=== PATIENT | male | born 1960 | race African-American/Black ===

== ENCOUNTER 2019-11-08 07:09 | Inpatient (IN) | payer MEDICAID, OTHER ==
[~2019-11-08] VITALS: Ht 182.9 cm; Wt 70.1 kg
[2019-11-08] MEDS ORDERED: SODIUM CHLORIDE 0.9% 1,000 ML IV ONE (07:51)
[2019-11-08 08:27] LABS: Eosinophils # (auto) 0.1 uL; Hemoglobin 7.2 g/dL (13.5-17.5); Monocytes # (auto) 0.5 uL
[2019-11-08 08:32] LABS: Basophils # (auto) 0.1 uL; Basophils % (auto) 0.9 % (0.0-2.0); Eosinophils % (auto) 1.1 % (0.0-7.0); Hematocrit 21.3 % (41.0-53.0); Lymphocytes # (auto) 1.5 uL; Lymphocytes % (auto) 24.6 % (10.0-50.0); Mean Corpuscular Hemoglobin 31.4 pg (28.0-32.0); Mean Corpuscular Volume 92.6 fL (80.0-100.0); Monocytes % (auto) 8.6 % (0.0-12.0); Neutrophils # (auto) 3.9 uL; Neutrophils % (auto) 64.8 % (37.0-80.0); Nucleated Red Blood Cells % 0.1 %; Platelet Count (auto) 223 10^3/uL (140-450); Red Cell Distribution Width 13.8 % (11.8-14.3)
[2019-11-08 08:45] LABS: Albumin 1.8 g/dL (3.4-5.0); Calcium 7.8 mg/dL (8.5-10.1); Potassium 5.4 mmol/L (3.5-5.1)
[2019-11-08] MEDS ORDERED: cefTRIAXone 1GM/50ML D5W 50 ML IV ONE ×2 (08:45→09:38)
[2019-11-08] MEDS ORDERED: ALBUTEROL SULF 2.5 MG/0.5ML(0.5%) NEB SOLN NEB ONE (08:45)
[2019-11-08] MEDS ORDERED: FUROSEMIDE 40 MG/4 ML VIAL IV ONE (08:45)
[2019-11-08] MEDS ORDERED: SPIRONOLACTONE 25 MG TAB PO ONE (08:45)
[2019-11-08] MEDS ORDERED: IPRATROPIUM BROM 0.5 MG/2.5ML INH SOL NEB ONE (08:45)
[2019-11-08 08:54] LABS: BUN/Creatinine Ratio 6.4; Bilirubin, Total 0.3 mg/dL (0.2-1.0); Total Protein 9.7 g/dL (6.4-8.2)
[2019-11-08 09:09] LABS: INR 1.02 (0.9-1.15); Partial Thromboplastin Time 27.2 sec (23.64-32.05)
[2019-11-08 10:21] LABS: Urine WBC None Seen /hpf (0 - 3)
[2019-11-08] MEDS ORDERED: InsuLIN REG 1unit/0.01ml Soln (100units/ml) IV ONE (10:45)
[2019-11-08 10:49] LABS: Urine Bacteria NONE SEEN /hpf (None Seen); Urine Blood TRACE /uL (Negative); Urine Specific Gravity 1.008 (1.001-1.035)
[2019-11-08] MEDS ORDERED: InsuLIN R (HUMAN) 100 UNITS in SODIUM CHL 0.9% 99 ML IV SCH (11:11)
[2019-11-08] MEDS ORDERED: INSULIN LANTUS (GLARGINE) 1 /0.01ml (100units/ml) SC ONE (11:15)
[2019-11-08] MEDS ORDERED: DEXTROSE (50%) 50ML SYRG IV PRN ×2 (11:15→12:45)
[2019-11-08] MEDS ORDERED: ACCU-CHEK COMFORT CURVE STRIP VI SCH (12:00)
[2019-11-08] MEDS ORDERED: MORPHINE SULF INJ 2 MG/ML SYRINGE 1ML IV PRN (12:45)
[2019-11-08] MEDS ORDERED: ALBUTEROL SULF 2.5 MG/0.5ML(0.5%) NEB SOLN NEB PRN (12:45)
[2019-11-08] MEDS ORDERED: LORazepam 2MG/ML-1ML VIAL IV PRN (12:45)
[2019-11-08] MEDS ORDERED: NITROGLYCERIN 0.4 MG SL TAB SL PRN (12:45)
[2019-11-08] MEDS ORDERED: hydrALAZINE HCL 20 MG/ML VL IV PRN (12:45)
[2019-11-08] MEDS ORDERED: IPRATROPIUM BROM 0.5 MG/2.5ML INH SOL NEB PRN (12:45)
[2019-11-08] MEDS ORDERED: InsuLIN REG 1unit/0.01ml Soln (100units/ml) SC ONE (13:00)
[2019-11-08 13:30] LABS: Phosphorus 4.4 mg/dL (2.5-4.90)
[2019-11-08] MEDS: amLODIPine BESYLATE 5 MG TAB PO SCH (13:34)
[2019-11-08 13:38] LABS: Uric Acid 6.6 mg/dL (3.5-7.2)
[2019-11-08 14:34] VITALS: BP 165/75
[2019-11-08] MEDS: ACCU-CHEK COMFORT CURVE STRIP VI SCH ×2 (16:34→20:44)
[2019-11-08] MEDS: InsuLIN REG 1unit/0.01ml Soln (100units/ml) SC SCH ×2 (16:34→20:44)
[2019-11-08 17:00] VITALS: BP 157/82
[2019-11-08] MEDS: BUMETANIDE 2.5mg/10ml (0.25 mg/ml) INJ IV SCH (17:10)
--- NOTE | 2019-11-08 17:10 | NUR ---
Telemetry admit from [facility] admitted to Telemetry unit after SBAR received. Patient oriented to JORGE AVELAR, primary RN, unit, room, bed, and unit policies regarding patient care and visiting hours. Patient now on continuous telemetry monitoring, tele box # 25 and telemetry reading on arrival to unit is . Patient placed on bedside oxygen, weighed by bed scale and encouraged to call if they need something. All questions and concerns addressed, patient verbalized understanding.
[2019-11-08] MEDS: CARVEDILOL 3.125 MG TAB PO SCH (17:11)
--- NOTE | 2019-11-08 17:41 | NUR ---
Patient does not remember his home meds, attempted to call his roommate (Kameron)#[phone] to bring his home meds lists but no response.
--- NOTE | 2019-11-08 19:15 | NUR ---
Opening Shift Note Assumed care of patient, awake and alert. No S/S of distress/SOB or pain. Instructed on POC and to call for assist PRN, will continue to monitor for changes Q1hr and PRN. Side rails up x2. Bed locked in lowest position. Call light within reach.
[2019-11-08 22:00] VITALS: BP 154/86
[2019-11-09] VITALS (7 sets, daily range): BP systolic 142–155; BP diastolic 60–86
[2019-11-09] MEDS: ACCU-CHEK COMFORT CURVE STRIP VI SCH ×6 (01:22→22:25)
[2019-11-09] MEDS: InsuLIN REG 1unit/0.01ml Soln (100units/ml) SC SCH ×5 (01:22→17:40)
[2019-11-09] MEDS: BUMETANIDE 2.5mg/10ml (0.25 mg/ml) INJ IV SCH ×2 (05:12→18:23)
[2019-11-09 05:49] LABS: Basophils # (auto) 0.1 uL; Basophils % (auto) 1.3 % (0.0-2.0); Eosinophils # (auto) 0.1 uL; Eosinophils % (auto) 1.4 % (0.0-7.0); Hematocrit 24.1 % (41.0-53.0); Hemoglobin 8.2 g/dL (13.5-17.5); Lymphocytes # (auto) 1.8 uL; Lymphocytes % (auto) 26.8 % (10.0-50.0); Mean Corpuscular Hemoglobin 30.9 pg (28.0-32.0); Mean Corpuscular Hgb Conc. 34.1 g/dL (32.0-36.0); Mean Corpuscular Volume 90.4 fL (80.0-100.0); Monocytes # (auto) 0.5 uL; Monocytes % (auto) 7.1 % (0.0-12.0); Neutrophils # (auto) 4.4 uL; Neutrophils % (auto) 63.4 % (37.0-80.0); Platelet Count (auto) 262 10^3/uL (140-450); Red Blood Cells 2.67 10^6/uL (4.5-5.90); Red Cell Distribution Width 14.3 % (11.8-14.3); White Blood Cell 6.9 10^3/uL (4.4-10.8)
[2019-11-09 06:09] LABS: Calcium 8.3 mg/dL (8.5-10.1); Potassium 4.5 mmol/L (3.5-5.1)
--- NOTE | 2019-11-09 08:05 | NUR ---
Respiratory note: ASSESSED PT FOR PRN MEDNEB TX. HR 99, RR 14, SPO2 97% ON ROOM AIR. BREATH SOUNDS CLEAR THROUGHOUT. PT SITTING UP IN BED EATING BREAKFAST, DENIES ANY SOB. NO S/S OF RESPIRATORY DISTRESS NOTED. MEDNEB TX NOT INDICATED AT THIS TIME. PT AWARE TO CALL FOR RT IF NEEDED.
[2019-11-09] MEDS: CARVEDILOL 3.125 MG TAB PO SCH ×2 (09:16→18:24)
[2019-11-09] MEDS: amLODIPine BESYLATE 5 MG TAB PO SCH (09:17)
[2019-11-09] MEDS ORDERED: DEXTROSE (50%) 50ML SYRG IV PRN (11:30)
--- NOTE | 2019-11-09 19:57 | NUR ---
Respiratory note: PRN ASSESSMENT FOR MED NEB TX. PT PRESENTING NO RESPIRATORY DISTRESS AT THIS TIME. HR 90, SPO2 98% ON 3LNC, RR 20, BS DIMINISHED. PT AWARE TO HAVE RT PAGED IF MED NEB TX IS NEEDED. WILL CONTINUE TO MONITOR.
[2019-11-09] MEDS ORDERED: InsuLIN REG 1unit/0.01ml Soln (100units/ml) SC SCH (22:00)
[2019-11-10 05:00] VITALS: BP 134/79
[2019-11-10] MEDS: BUMETANIDE 2.5mg/10ml (0.25 mg/ml) INJ IV SCH (05:42)
[2019-11-10 06:25] LABS: Basophils # (auto) 0.1 uL; Basophils % (auto) 0.9 % (0.0-2.0); Eosinophils # (auto) 0.1 uL; Eosinophils % (auto) 1.7 % (0.0-7.0); Hemoglobin 8.3 g/dL (13.5-17.5); Lymphocytes # (auto) 2.2 uL; Lymphocytes % (auto) 31.6 % (10.0-50.0); Mean Corpuscular Hemoglobin 31.3 pg (28.0-32.0); Mean Corpuscular Hgb Conc. 34.8 g/dL (32.0-36.0); Mean Corpuscular Volume 89.9 fL (80.0-100.0); Monocytes # (auto) 0.6 uL; Monocytes % (auto) 8.8 % (0.0-12.0); Nucleated Red Blood Cells % 0.1 %; Platelet Count (auto) 273 10^3/uL (140-450); Red Blood Cells 2.67 10^6/uL (4.5-5.90); Red Cell Distribution Width 14.2 % (11.8-14.3)
[2019-11-10] MEDS: InsuLIN REG 1unit/0.01ml Soln (100units/ml) SC SCH ×2 (06:30→11:50)
[2019-11-10] MEDS: ACCU-CHEK COMFORT CURVE STRIP VI SCH ×2 (06:35→11:50)
[2019-11-10 06:44] LABS: Calcium 8.3 mg/dL (8.5-10.1); Potassium 4.8 mmol/L (3.5-5.1)
[2019-11-10 06:47] LABS: BUN/Creatinine Ratio 7.6
--- NOTE | 2019-11-10 07:55 | NUR ---
Patient sitting up in bed, awake, oriented x4, no acute distress noted. Patient waiting for breakfast tray.
--- NOTE | 2019-11-10 08:15 | NUR ---
Patient eating breakfast.
[2019-11-10 09:00] VITALS: BP 127/70
[2019-11-10] MEDS: CARVEDILOL 3.125 MG TAB PO SCH (09:53)
[2019-11-10] MEDS: amLODIPine BESYLATE 5 MG TAB PO SCH (09:53)
--- NOTE | 2019-11-10 09:55 | NUR ---
Called Stress Lab, transferred my call to Nuclear Medicine. Spoke with Carson what time is patient going to have Stress Test, patient is on NPO. Carson said patient can have light breakfast but no coffee. Addendum: 11/10/19 at 1024 by Ele Ely RN WRONG ENTRY
--- NOTE | 2019-11-10 10:00 | NUR ---
Patient sitting up in bed, waiting for the doctor to see him.
--- NOTE | 2019-11-10 11:05 | NUR ---
Dr. Kelsey at bedside. explained to patient the recommendation for hemodialysis. Patient insisted he has an appointment with Dr. Blake on Wednesday to discuss the other option regarding hemodialysis. Patient wants to go home. Dr. Kelsey to put in discharge orders.
--- NOTE | 2019-11-10 11:15 | NUR ---
Patient's friend Idalia ([phone]) called that she will brain picker the patient after 2:00 pm today because she has doctor's appointment at [facility]. Will inform the patient.
[2019-11-10 13:16] VITALS: BP 127/70
--- NOTE | 2019-11-10 15:15 | NUR ---
Discharge instructions given as ordered. Encourage to follow up with PMD as instructed. All questions and concerns addressed. Patient verbalized understanding. Medication reconciliation form completed and copy given to patient. IV removed with catheter intact, pressure dressing applied. Telemetry unit returned to ICU. Patient taken to vehicle via wheelchair with all personal belongings, accompanied by staff and friend. No distress noted at time of departure.
== END 2019-11-10 15:15 | disposition home or self-care (01) | DRG 133 ==
LOC: ER 07:09 → EDBD 07:09 → TELE 07:10 → TELE-CENTR 16:12
PROVIDERS: ADMIT Nurse Practitioner Acute Care; ATTEND Internal Medicine
DX: J96.01 Acute respiratory failure with hypoxia (principal); E43 Unspecified severe protein-calorie malnutrition; I13.2 Hypertensive heart and chronic kidney disease with heart failure and with stage 5 chronic kidney disease, or end stage renal disease; J18.9 Pneumonia, unspecified organism; N17.9 Acute kidney failure, unspecified; E11.22 Type 2 diabetes mellitus with diabetic chronic kidney disease; I50.43 Acute on chronic combined systolic (congestive) and diastolic (congestive) heart failure; N18.6 End stage renal disease; E87.5 Hyperkalemia; D63.1 Anemia in chronic kidney disease; F20.0 Paranoid schizophrenia; E78.5 Hyperlipidemia, unspecified; F31.9 Bipolar disorder, unspecified; J44.0 Chronic obstructive pulmonary disease with (acute) lower respiratory infection; Z79.4 Long term (current) use of insulin; Z79.899 Other long term (current) drug therapy; Z91.15 Patient's noncompliance with renal dialysis; Z68.1 Body mass index [BMI] 19.9 or less, adult
CPT/HCPCS: 36415; 71046; 76775; 78582; 80048; 80053; 81001; 82962; 83036; 83735; 83880; 84100; 84443; 84484; 84550; 85025; 85379; 85610; 85730; 86850; 86900; 86901; 87040; 93005; 93306; 94640; 96365; 96372; 96375; 99291; G0378; J0696; J1815

== ENCOUNTER 2019-11-29 02:44 | Inpatient (IN) | payer MEDICAID ==
[2019-11-29] VITALS (11 sets, daily range): BP systolic 146–162; BP diastolic 53–74
[~2019-11-29] VITALS: Ht 180.3 cm; Wt 78.5 kg
[2019-11-29] MEDS ORDERED: ALBUTEROL SULF 2.5 MG/0.5ML(0.5%) NEB SOLN NEB ONE ×3 (03:00→12:00)
[2019-11-29] MEDS ORDERED: IPRATROPIUM BROM 0.5 MG/2.5ML INH SOL NEB ONE ×2 (03:00→06:15)
[2019-11-29 03:30] LABS: Basophils # (auto) 0 10 ^3/uL (0-0.2); Eosinophils # (auto) 0.1 10 ^3/uL (0-0.8); Hematocrit 20.3 % (41.0-53.0); Neutrophils # (auto) 4.1 10 ^3/uL (1.6-8.6); White Blood Cell 6.5 10^3/uL (4.4-10.8)
[2019-11-29 03:32] LABS: Basophils % (auto) 0.7 % (0.0-2.0); Eosinophils % (auto) 1.1 % (0.0-7.0); Lymphocytes # (auto) 1.7 10 ^3/uL (0.4-5.4); Lymphocytes % (auto) 25.6 % (10.0-50.0); Mean Corpuscular Hemoglobin 30.2 pg (28.0-32.0); Mean Corpuscular Hgb Conc. 33.6 g/dL (32.0-36.0); Mean Corpuscular Volume 90.1 fL (80.0-100.0); Monocytes # (auto) 0.6 10 ^3/uL (0-1.3); Monocytes % (auto) 9.5 % (0.0-12.0); Neutrophils % (auto) 63.1 % (37.0-80.0); Platelet Count (auto) 219 10^3/uL (140-450); Red Blood Cells 2.26 10^6/uL (4.5-5.90)
[2019-11-29 03:36] LABS: Hemoglobin 6.8 g/dL (13.5-17.5)
[2019-11-29] MEDS ORDERED: methylPREDNISolone SOD SUCC 125 MG/2 ML VL IV ONE (03:45)
[2019-11-29 03:47] LABS: INR 1.08 (0.9-1.15); Partial Thromboplastin Time 27.5 sec (23.64-32.05)
[2019-11-29 03:56] LABS: Calcium 7.7 mg/dL (8.5-10.1); Potassium 4.1 mmol/L (3.5-5.1)
[2019-11-29 04:04] LABS: Bilirubin, Total 0.2 mg/dL (0.2-1.0); Total Protein 10.1 g/dL (6.4-8.2)
[2019-11-29] MEDS ORDERED: VANCOMYCIN PER PHARMACY 0 MG IV SCH (05:30)
[2019-11-29] MEDS ORDERED: PIPERACILLIN-TAZOB 3.375GM 100 ML IV ONE (05:30)
[2019-11-29] MEDS ORDERED: VANCOMYCIN 1GM/250ML 250 ML IV ONE (07:00)
[2019-11-29] MEDS ORDERED: FUROSEMIDE 100 MG/10ML VIAL IV ONE (07:15)
[2019-11-29] MEDS ORDERED: DEXTROSE (50%) 50ML SYRG IV PRN (07:15)
[2019-11-29] MEDS: ACETAMINOPHEN 500 MG TAB PO ONE ×2 (10:00→10:29)
[2019-11-29] MEDS: methylPREDNISolone SOD SUCC 40 MG/ML VL IV SCH ×2 (10:28→21:24)
[2019-11-29] MEDS: cefTRIAXone 1GM/50ML D5W 50 ML IV SCH (10:30)
[2019-11-29] MEDS ORDERED: InsuLIN REG 1unit/0.01ml Soln (100units/ml) SC SCH ×2 (12:00→18:00)
[2019-11-29] MEDS ORDERED: ACCU-CHEK COMFORT CURVE STRIP VI ONE (12:00)
[2019-11-29] MEDS ORDERED: ACCU-CHEK COMFORT CURVE STRIP VI SCH (12:00)
[2019-11-29] MEDS: SEVELAMER 800 MG TAB PO SCH ×2 (12:36→18:09)
[2019-11-29] MEDS: AZITHROMYCIN 500MG/ 250ML 250 ML IV SCH (12:36)
[2019-11-29] MEDS ORDERED: InsuLIN REG 1unit/0.01ml Soln (100units/ml) SC ONE (13:15)
[2019-11-29] MEDS ORDERED: INSULIN LANTUS (GLARGINE) 1 /0.01ml (100units/ml) SC ONE (13:15)
[2019-11-29] MEDS ORDERED: amLODIPine BESYLATE 5 MG TAB PO ONE (13:45)
[2019-11-29 14:13] LABS: Basophils # (auto) 0 10 ^3/uL (0-0.2); Basophils % (auto) 0.3 % (0.0-2.0); Eosinophils # (auto) 0 10 ^3/uL (0-0.8); Hematocrit 27.2 % (41.0-53.0); Hemoglobin 8.9 g/dL (13.5-17.5); Lymphocytes # (auto) 0.3 10 ^3/uL (0.4-5.4); Lymphocytes % (auto) 5.9 % (10.0-50.0); Mean Corpuscular Hemoglobin 30.5 pg (28.0-32.0); Mean Corpuscular Hgb Conc. 32.7 g/dL (32.0-36.0); Mean Corpuscular Volume 93.2 fL (80.0-100.0); Monocytes # (auto) 0 10 ^3/uL (0-1.3); Monocytes % (auto) 0.6 % (0.0-12.0); Neutrophils # (auto) 5.2 10 ^3/uL (1.6-8.6); Neutrophils % (auto) 93.2 % (37.0-80.0); Platelet Count (auto) 209 10^3/uL (140-450); Red Blood Cells 2.92 10^6/uL (4.5-5.90); Red Cell Distribution Width 14.5 % (11.8-14.3); White Blood Cell 5.6 10^3/uL (4.4-10.8)
[2019-11-29] MEDS ORDERED: InsuLIN REG 1unit/0.01ml Soln (100units/ml) IV ONE ×2 (15:15→18:45)
[2019-11-29] MEDS: InsuLIN REG 1unit/0.01ml Soln (100units/ml) SC SCH ×2 (18:27→21:26)
[2019-11-29] MEDS: ACCU-CHEK COMFORT CURVE STRIP VI SCH ×2 (18:27→21:26)
[2019-11-29] MEDS: INSULIN LANTUS (GLARGINE) 1 /0.01ml (100units/ml) SC SCH (21:26)
[2019-11-29] MEDS ORDERED: INSULIN LANTUS (GLARGINE) 1 /0.01ml (100units/ml) SC SCH (22:00)
[2019-11-30] MEDS: ACCU-CHEK COMFORT CURVE STRIP VI SCH ×6 (02:12→21:24)
[2019-11-30] MEDS: InsuLIN REG 1unit/0.01ml Soln (100units/ml) SC SCH ×6 (02:18→21:28)
[2019-11-30 05:00] VITALS: BP 151/73
[2019-11-30 05:55] LABS: Basophils # (auto) 0 10 ^3/uL (0-0.2); Basophils % (auto) 0.1 % (0.0-2.0); Eosinophils # (auto) 0 10 ^3/uL (0-0.8); Hematocrit 23.8 % (41.0-53.0); Hemoglobin 8.2 g/dL (13.5-17.5); Lymphocytes # (auto) 0.6 10 ^3/uL (0.4-5.4); Lymphocytes % (auto) 6.5 % (10.0-50.0); Mean Corpuscular Hgb Conc. 34.7 g/dL (32.0-36.0); Mean Corpuscular Volume 89.5 fL (80.0-100.0); Monocytes # (auto) 0.3 10 ^3/uL (0-1.3); Monocytes % (auto) 3.5 % (0.0-12.0); Neutrophils # (auto) 7.6 10 ^3/uL (1.6-8.6); Neutrophils % (auto) 89.9 % (37.0-80.0); Platelet Count (auto) 199 10^3/uL (140-450); Red Blood Cells 2.66 10^6/uL (4.5-5.90); Red Cell Distribution Width 14.4 % (11.8-14.3); White Blood Cell 8.5 10^3/uL (4.4-10.8)
[2019-11-30 06:12] LABS: Calcium 8.8 mg/dL (8.5-10.1); Potassium 4.6 mmol/L (3.5-5.1)
[2019-11-30 06:14] LABS: BUN/Creatinine Ratio 11.5; Phosphorus 6.9 mg/dL (2.5-4.90)
[2019-11-30] MEDS: SEVELAMER 800 MG TAB PO SCH ×3 (08:00→17:42)
[2019-11-30] MEDS ORDERED: SODIUM CHL 0.9% 1000 ML BAG XX ONE (08:15)
[2019-11-30] MEDS ORDERED: LIDOCAINE 2%HCL (LOCAL ANESTH.) INJ 20ML MDV ONE (08:20)
[2019-11-30] MEDS ORDERED: HEPARIN SODIUM (PORCINE) 5000 UNITS/ML 1ML VIAL ONE (08:54)
[2019-11-30] MEDS ORDERED: fentaNYL CITRATE 100 MCG/2 ML VL ONE (08:54)
[2019-11-30] MEDS ORDERED: MIDAZOLAM HCL 1MG/1ML-2 ML VIAL ONE (08:55)
[2019-11-30] MEDS: INSULIN LANTUS (GLARGINE) 1 /0.01ml (100units/ml) SC SCH ×2 (10:00→21:29)
[2019-11-30] MEDS: amLODIPine BESYLATE 5 MG TAB PO SCH ×2 (10:00→19:01)
[2019-11-30] MEDS: cefTRIAXone 1GM/50ML D5W 50 ML IV SCH (10:00)
[2019-11-30] MEDS: methylPREDNISolone SOD SUCC 40 MG/ML VL IV SCH ×2 (10:47→21:24)
[2019-11-30] MEDS: AZITHROMYCIN 500MG/ 250ML 250 ML IV SCH (10:52)
[2019-11-30 11:09] LABS: Hepatitis A Ab IgM Negative; Hepatitis B Core IgM Negative; Hepatitis B Surface Antigen Negative (Negative); Hepatitis C Antibody Negative (Negative)
[2019-11-30] MEDS ORDERED: SODIUM FERR GLUC 62.5MG/5ML 125 MG in SODIUM CHL 0.9% 100 ML IV SCH (12:00)
[2019-11-30 13:01] VITALS: BP 146/79
[2019-11-30] MEDS: IRON SUCROSE COMPLEX 200 MG in SODIUM CHL 0.9% 100 ML IV SCH (16:18)
[2019-11-30 17:00] VITALS: BP 164/70
[2019-11-30] MEDS ORDERED: EPOETIN ALFA 10,000 UNIT/1 ML VIAL SC ONE (21:00)
[2019-11-30 22:00] VITALS: BP 157/97
[2019-12-01] MEDS: InsuLIN REG 1unit/0.01ml Soln (100units/ml) SC SCH ×6 (02:44→22:03)
[2019-12-01] MEDS: ACCU-CHEK COMFORT CURVE STRIP VI SCH ×6 (02:44→22:04)
[2019-12-01 05:00] VITALS: BP 152/85
[2019-12-01 05:41] LABS: Basophils # (auto) 0 10 ^3/uL (0-0.2); Basophils % (auto) 0.3 % (0.0-2.0); Eosinophils # (auto) 0 10 ^3/uL (0-0.8); Eosinophils % (auto) 0.1 % (0.0-7.0); Hematocrit 28.1 % (41.0-53.0); Hemoglobin 9.7 g/dL (13.5-17.5); Lymphocytes # (auto) 0.5 10 ^3/uL (0.4-5.4); Lymphocytes % (auto) 4.4 % (10.0-50.0); Mean Corpuscular Hemoglobin 31.2 pg (28.0-32.0); Mean Corpuscular Hgb Conc. 34.7 g/dL (32.0-36.0); Mean Corpuscular Volume 89.8 fL (80.0-100.0); Monocytes # (auto) 0.3 10 ^3/uL (0-1.3); Neutrophils # (auto) 9.7 10 ^3/uL (1.6-8.6); Neutrophils % (auto) 92.2 % (37.0-80.0); Platelet Count (auto) 216 10^3/uL (140-450); Red Blood Cells 3.13 10^6/uL (4.5-5.90); Red Cell Distribution Width 14.4 % (11.8-14.3); White Blood Cell 10.5 10^3/uL (4.4-10.8)
[2019-12-01 05:58] LABS: BUN/Creatinine Ratio 12.5; Calcium 8.2 mg/dL (8.5-10.1); Potassium 4.7 mmol/L (3.5-5.1)
[2019-12-01] MEDS ORDERED: SODIUM CHL 0.9% 1000 ML BAG XX ONE (07:00)
[2019-12-01 09:00] VITALS: BP 128/86
[2019-12-01] MEDS: cefTRIAXone 1GM/50ML D5W 50 ML IV SCH (09:53)
[2019-12-01] MEDS: INSULIN LANTUS (GLARGINE) 1 /0.01ml (100units/ml) SC SCH ×2 (09:53→22:05)
[2019-12-01] MEDS: methylPREDNISolone SOD SUCC 40 MG/ML VL IV SCH ×2 (09:54→22:03)
[2019-12-01] MEDS: amLODIPine BESYLATE 5 MG TAB PO SCH ×2 (09:54→17:57)
[2019-12-01] MEDS: SEVELAMER 800 MG TAB PO SCH ×3 (09:55→17:56)
[2019-12-01] MEDS: AZITHROMYCIN 500MG/ 250ML 250 ML IV SCH (11:42)
[2019-12-01] MEDS: IRON SUCROSE COMPLEX 200 MG in SODIUM CHL 0.9% 100 ML IV SCH (12:52)
[2019-12-01 13:00] VITALS: BP 143/91
[2019-12-01 17:00] VITALS: BP 166/73
[2019-12-01 20:10] VITALS: BP 140/77
[2019-12-01] MEDS ORDERED: EPOETIN ALFA 10,000 UNIT/1 ML VIAL SC ONE (21:00)
[2019-12-01 22:00] VITALS: BP 140/77
[2019-12-02] MEDS: ACCU-CHEK COMFORT CURVE STRIP VI SCH ×6 (02:00→21:37)
[2019-12-02] MEDS: InsuLIN REG 1unit/0.01ml Soln (100units/ml) SC SCH ×6 (02:00→21:36)
[2019-12-02 05:00] VITALS: BP 148/88
[2019-12-02] MEDS ORDERED: SODIUM CHL 0.9% 1000 ML BAG XX ONE (07:45)
[2019-12-02 08:46] VITALS: BP 153/85
[2019-12-02] MEDS: cefTRIAXone 1GM/50ML D5W 50 ML IV SCH (09:30)
[2019-12-02] MEDS: methylPREDNISolone SOD SUCC 40 MG/ML VL IV SCH ×2 (09:30→21:37)
[2019-12-02] MEDS: SEVELAMER 800 MG TAB PO SCH ×3 (09:30→18:11)
[2019-12-02] MEDS: amLODIPine BESYLATE 5 MG TAB PO SCH (09:31)
[2019-12-02] MEDS: INSULIN LANTUS (GLARGINE) 1 /0.01ml (100units/ml) SC SCH ×2 (09:33→21:37)
[2019-12-02] MEDS: AZITHROMYCIN 500MG/ 250ML 250 ML IV SCH (12:26)
[2019-12-02] MEDS: IRON SUCROSE COMPLEX 200 MG in SODIUM CHL 0.9% 100 ML IV SCH (12:26)
[2019-12-02 12:30] VITALS: BP_SYST 114; BP_SYST 152; BP_DIAS 71; BP_DIAS 83
[2019-12-02 16:35] VITALS: BP 147/78
[2019-12-02] MEDS ORDERED: EPOETIN ALFA 10,000 UNIT/1 ML VIAL SC ONE (21:00)
[2019-12-02 22:00] VITALS: BP 151/75
[2019-12-03 02:00] VITALS: BP 157/84
[2019-12-03] MEDS: ACCU-CHEK COMFORT CURVE STRIP VI SCH ×4 (02:23→14:00)
[2019-12-03] MEDS: InsuLIN REG 1unit/0.01ml Soln (100units/ml) SC SCH ×4 (02:23→14:00)
[2019-12-03 05:00] VITALS: BP 150/85
[2019-12-03 09:10] VITALS: BP 140/91
[2019-12-03] MEDS: SEVELAMER 800 MG TAB PO SCH ×3 (10:44→15:48)
[2019-12-03] MEDS: amLODIPine BESYLATE 5 MG TAB PO SCH (10:45)
[2019-12-03] MEDS: methylPREDNISolone SOD SUCC 40 MG/ML VL IV SCH (10:46)
[2019-12-03] MEDS: cefTRIAXone 1GM/50ML D5W 50 ML IV SCH (10:46)
[2019-12-03] MEDS: INSULIN LANTUS (GLARGINE) 1 /0.01ml (100units/ml) SC SCH (11:00)
[2019-12-03] MEDS: AZITHROMYCIN 500MG/ 250ML 250 ML IV SCH (11:00)
[2019-12-03] MEDS: IRON SUCROSE COMPLEX 200 MG in SODIUM CHL 0.9% 100 ML IV SCH (12:00)
[2019-12-03 13:00] VITALS: BP 148/93
[2019-12-03 13:16] VITALS: BP 140/91
== END 2019-12-03 15:32 | disposition home or self-care (01) | DRG 139 ==
LOC: EDBD 02:44 → ER 02:49 → TELE 02:50 → TELE-WESTW 09:00
PROVIDERS: ADMIT Internal Medicine Pulmonary Disease; ATTEND Internal Medicine
PROC: 30233N1 Transfusion of Nonautologous Red Blood Cells into Peripheral Vein, Percutaneous Approach (ICD-10-PCS; principal; 2019-11-29)
PROC: 0JH63XZ Insertion of Tunneled Vascular Access Device into Chest Subcutaneous Tissue and Fascia, Percutaneous Approach (ICD-10-PCS; 2019-11-30)
PROC: 02HV33Z Insertion of Infusion Device into Superior Vena Cava, Percutaneous Approach (ICD-10-PCS; 2019-11-30)
PROC: B5181ZA Fluoroscopy of Superior Vena Cava using Low Osmolar Contrast, Guidance (ICD-10-PCS; 2019-11-30)
PROC: 5A1D70Z Performance of Urinary Filtration, Intermittent, Less than 6 Hours Per Day (ICD-10-PCS; 2019-11-30)
PROC: 5A1D70Z Performance of Urinary Filtration, Intermittent, Less than 6 Hours Per Day (ICD-10-PCS; 2019-12-02)
DX: J18.9 Pneumonia, unspecified organism (principal); I13.2 Hypertensive heart and chronic kidney disease with heart failure and with stage 5 chronic kidney disease, or end stage renal disease; N17.9 Acute kidney failure, unspecified; E11.21 Type 2 diabetes mellitus with diabetic nephropathy; N18.6 End stage renal disease; I50.22 Chronic systolic (congestive) heart failure; D63.1 Anemia in chronic kidney disease; J20.9 Acute bronchitis, unspecified; J44.9 Chronic obstructive pulmonary disease, unspecified; E11.22 Type 2 diabetes mellitus with diabetic chronic kidney disease; F31.9 Bipolar disorder, unspecified; K21.9 Gastro-esophageal reflux disease without esophagitis; Z99.2 Dependence on renal dialysis; Z79.4 Long term (current) use of insulin; Z79.899 Other long term (current) drug therapy; Z71.6 Tobacco abuse counseling
CPT/HCPCS: 36415; 71045; 76942; 80048; 80053; 80074; 82728; 82962; 83540; 83550; 83605; 83880; 84100; 84484; 85025; 85610; 85730; 86850; 86900; 86901; 86920; 87040; 90935; 93005; 94640; 96365; 96367; 96375; 99152; 99153; G0378; J0696; J0885; J1642; J1756; J1815; J2250; J2543

== ENCOUNTER 2020-01-22 01:42 | Inpatient (IN) | payer MEDICAID ==
[~2020-01-22] VITALS: Ht 180.3 cm; Wt 75.3 kg
[2020-01-22] MEDS ORDERED: InsuLIN REG 1unit/0.01ml Soln (100units/ml) IV ONE (02:00)
[2020-01-22 02:44] LABS: Basophils # (auto) 0 10 ^3/uL (0-0.2); Eosinophils # (auto) 0.1 10 ^3/uL (0-0.8); Hemoglobin 8.4 g/dL (13.5-17.5); Lymphocytes # (auto) 1.1 10 ^3/uL (0.4-5.4); Neutrophils # (auto) 4.6 10 ^3/uL (1.6-8.6); White Blood Cell 6.3 10^3/uL (4.4-10.8)
[2020-01-22 02:46] LABS: Basophils % (auto) 0.6 % (0.0-2.0); Eosinophils % (auto) 0.8 % (0.0-7.0); Hematocrit 25.1 % (41.0-53.0); Lymphocytes % (auto) 17.8 % (10.0-50.0); Mean Corpuscular Hemoglobin 30.4 pg (28.0-32.0); Mean Corpuscular Hgb Conc. 33.5 g/dL (32.0-36.0); Mean Corpuscular Volume 90.8 fL (80.0-100.0); Monocytes # (auto) 0.4 10 ^3/uL (0-1.3); Monocytes % (auto) 7.1 % (0.0-12.0); Neutrophils % (auto) 73.7 % (37.0-80.0); Nucleated Red Blood Cells % 0.1 %; Platelet Count (auto) 210 10^3/uL (140-450); Red Blood Cells 2.76 10^6/uL (4.5-5.90); Red Cell Distribution Width 16.4 % (11.8-14.3)
[2020-01-22 03:15] LABS: Albumin 1.8 g/dL (3.4-5.0); Calcium 7.2 mg/dL (8.5-10.1); Potassium 3.4 mmol/L (3.5-5.1)
[2020-01-22 03:16] LABS: INR 1.11 (0.9-1.15); Partial Thromboplastin Time 29.1 sec (23.64-32.05)
[2020-01-22 03:24] LABS: BUN/Creatinine Ratio 3.6; Bilirubin, Total 0.4 mg/dL (0.2-1.0); Total Protein 9.9 g/dL (6.4-8.2)
[2020-01-22] MEDS ORDERED: FUROSEMIDE 20 MG/2 ML VIAL ONE (03:55)
[2020-01-22 03:58] LABS: Urine Bacteria FEW /hpf (None Seen); Urine Blood 1+ /uL (Negative); Urine Specific Gravity 1.006 (1.001-1.035); Urine WBC 29 /hpf (0 - 3)
[2020-01-22] MEDS ORDERED: FUROSEMIDE 40 MG/4 ML VIAL IV ONE (04:00)
[2020-01-22] MEDS ORDERED: SODIUM CHLORIDE 0.9% 1,000 ML IV SCH (04:38)
[2020-01-22] MEDS ORDERED: ONDANSETRON HCL 4 MG/2 ML VIAL IV PRN (04:45)
[2020-01-22] MEDS ORDERED: MORPHINE SULFATE 4 MG/ML SYR/VIAL IV PRN (04:45)
[2020-01-22] MEDS ORDERED: HYDROcodone-ACET 5/325MG TAB PO PRN (04:45)
[2020-01-22] MEDS ORDERED: DEXTROSE (50%) 50ML SYRG IV PRN ×2 (04:45→12:45)
[2020-01-22] MEDS ORDERED: ACETAMINOPHEN 325 MG TAB PO PRN (04:45)
[2020-01-22] MEDS ORDERED: ALBUTEROL SULF 2.5 MG/0.5ML(0.5%) NEB SOLN NEB PRN (04:45)
[2020-01-22] MEDS ORDERED: LORazepam 0.5 MG TAB PO PRN (04:45)
[2020-01-22] MEDS ORDERED: IPRATROPIUM BROM 0.5 MG/2.5ML INH SOL NEB PRN (04:45)
--- NOTE | 2020-01-22 05:45 | NUR ---
Respiratory note: ASSESSED PT FOR PRN TX . PT WAS AWAKE AND ALERT, NO RESP DISTRESS NOTED. HR 92, RR 18, SPO2 94% ON 2L N/C. NO INDICATION FOR TX AT THIS TIME. PT KNOWS TO HAVE RT PAGED IF TX IS NEEDED.
[2020-01-22 05:46] VITALS: BP 176/86
[2020-01-22 06:23] LABS: Calcium 7.4 mg/dL (8.5-10.1); Potassium 3.2 mmol/L (3.5-5.1)
[2020-01-22 06:44] LABS: Eosinophils # (auto) 0.1 10 ^3/uL (0-0.8); Hemoglobin 8.2 g/dL (13.5-17.5); Monocytes # (auto) 0.6 10 ^3/uL (0-1.3); White Blood Cell 7.1 10^3/uL (4.4-10.8)
[2020-01-22 06:47] LABS: Basophils # (auto) 0.1 10 ^3/uL (0-0.2); Basophils % (auto) 0.8 % (0.0-2.0); Hematocrit 24.5 % (41.0-53.0); Lymphocytes # (auto) 1.5 10 ^3/uL (0.4-5.4); Lymphocytes % (auto) 20.5 % (10.0-50.0); Mean Corpuscular Hemoglobin 30.2 pg (28.0-32.0); Mean Corpuscular Hgb Conc. 33.6 g/dL (32.0-36.0); Mean Corpuscular Volume 89.6 fL (80.0-100.0); Monocytes % (auto) 8.6 % (0.0-12.0); Neutrophils # (auto) 4.9 10 ^3/uL (1.6-8.6); Neutrophils % (auto) 69.1 % (37.0-80.0); Platelet Count (auto) 216 10^3/uL (140-450); Red Blood Cells 2.73 10^6/uL (4.5-5.90); Red Cell Distribution Width 16.8 % (11.8-14.3)
[2020-01-22] MEDS: ACCU-CHEK COMFORT CURVE STRIP VI SCH ×4 (07:55→22:11)
[2020-01-22] MEDS: InsuLIN REG 1unit/0.01ml Soln (100units/ml) SC SCH ×4 (08:11→22:11)
[2020-01-22] MEDS ORDERED: POTASSIUM CHL 20 Meq TABLET PO ONE (08:45)
[2020-01-22 08:50] VITALS: BP 168/89
[2020-01-22] MEDS ORDERED: cefTRIAXone 1GM/50ML D5W 50 ML IV SCH (09:00)
[2020-01-22] MEDS ORDERED: B-CO-6 PO (09:45)
[2020-01-22] MEDS ORDERED: INSU100I45 IJ (09:45)
[2020-01-22] MEDS ORDERED: METH-532 PO (09:45)
[2020-01-22] MEDS ORDERED: CINA30TA2 PO (09:45)
[2020-01-22] MEDS ORDERED: INSU1INJ19 SC (09:45)
[2020-01-22] MEDS ORDERED: DIPH25CA66 PO (09:45)
[2020-01-22] MEDS ORDERED: SIMV10TA84 PO (09:45)
[2020-01-22] MEDS ORDERED: QUET25TA37 PO (09:45)
[2020-01-22] MEDS ORDERED: VERA120T6 PO (09:45)
[2020-01-22] MEDS ORDERED: SEVE800T8 PO ×2 (09:45)
[2020-01-22] MEDS ORDERED: FUROSEMIDE 40 MG/4 ML VIAL IV SCH (10:00)
[2020-01-22] MEDS ORDERED: methylPREDNISolone SOD SUCC 125 MG/2 ML VL IV SCH (10:00)
[2020-01-22] MEDS ORDERED: PANTOPRAZOLE 40 MG/10 ML VIAL INJ IV SCH (10:00)
--- NOTE | 2020-01-22 10:30 | NUR ---
MRSA SENT TO LAB
--- NOTE | 2020-01-22 10:30 | NUR ---
NO LASIX ON CENTRAL NOTIFIED KATERIN FROM PHARMACY NO LASIX ON CENTRAL HE WILL RESTOCK IF AVAILABLE.
[2020-01-22] MEDS ORDERED: FUROSEMIDE 100 MG/10ML VIAL IV ONE (12:00)
[2020-01-22 13:00] VITALS: BP 151/89
--- NOTE | 2020-01-22 13:30 | NUR ---
OXYGEN PATIENT PLACED ON 3LNC HE USES HOME O2 AT 3 LITERS FOR COPD.
[2020-01-22 17:00] VITALS: BP 122/92
--- NOTE | 2020-01-22 18:30 | NUR ---
ROOM CHANGED TO 201
[2020-01-22] MEDS: CARVEDILOL 12.5 MG TAB PO SCH ×2 (18:44→21:47)
[2020-01-22] MEDS: SACUBITRIL-VALSARTAN 24mg/26mg TAB PO SCH ×2 (18:44→21:47)
[2020-01-22] MEDS: SEVELAMER 800 MG TAB PO SCH (18:48)
--- NOTE | 2020-01-22 19:10 | NUR ---
ENDORSED CARE TO NIGHT RN.
--- NOTE | 2020-01-22 20:00 | NUR ---
[employer] vest graphic art sales representative at bedside.
--- NOTE | 2020-01-22 20:15 | NUR ---
[employer] Life Vest Patient stated that he took off life vest because he did not understand instructions. instructor business education called and stated that the patient have mental disorder and he would not understand instructions. Will notify incoming RN to see if education can be provided to caregiver.
--- NOTE | 2020-01-22 20:40 | NUR ---
OPENING SHIFT NOTE Assumed care of patient who is A&O x3. Currently on 4L NC. Reports SOB with exertion. denies pain at this time. POC discussed. Patient has a [employer] life vest at bedside, however, is refusing to put it on due to not understanding the teaching provided. Reinforced the need for and action of the vest. patient requests to speak with a [employer] traffic workforce representative again tomorrow. Bed is in low locked position and side rails are up x2. Call light is within reach and patient encouraged to call for assistance when needed. Will continue to monitor for changes.
[2020-01-22 21:20] VITALS: BP 161/85
[2020-01-22 22:00] VITALS: BP 161/85
[2020-01-22] MEDS: INSULIN LANTUS (GLARGINE) 1 /0.01ml (100units/ml) SC SCH (22:11)
--- NOTE | 2020-01-23 00:56 | NUR ---
Respiratory note: PT ASSESSED FOR PRN TX. HR 95, RR 16, POX 98% ON 3L NC, BS ARE CLEAR. NO SOB OR DISTRESS NOTED. PT NOTIFY TO HAVE RT PAGE FOR NEEDED MN TX.
[2020-01-23 05:00] VITALS: BP 125/77
[2020-01-23 05:58] LABS: Basophils # (auto) 0 10 ^3/uL (0-0.2); Basophils % (auto) 0.2 % (0.0-2.0); Eosinophils # (auto) 0 10 ^3/uL (0-0.8); Hematocrit 26.9 % (41.0-53.0); Lymphocytes % (auto) 14.5 % (10.0-50.0); Mean Corpuscular Hemoglobin 30.6 pg (28.0-32.0); Mean Corpuscular Hgb Conc. 33.6 g/dL (32.0-36.0); Mean Corpuscular Volume 91.1 fL (80.0-100.0); Monocytes # (auto) 0.3 10 ^3/uL (0-1.3); Monocytes % (auto) 4.3 % (0.0-12.0); Neutrophils # (auto) 5.5 10 ^3/uL (1.6-8.6); Nucleated Red Blood Cells % 0.2 %; Platelet Count (auto) 217 10^3/uL (140-450); Red Blood Cells 2.95 10^6/uL (4.5-5.90); Red Cell Distribution Width 16.9 % (11.8-14.3); White Blood Cell 6.8 10^3/uL (4.4-10.8)
[2020-01-23] MEDS: ACCU-CHEK COMFORT CURVE STRIP VI SCH ×4 (06:20→21:22)
[2020-01-23 06:27] LABS: Potassium 5.1 mmol/L (3.5-5.1)
--- NOTE | 2020-01-23 06:30 | NUR ---
PT ASSESSED FOR PRN HHN TX. PT IS ON 2LNC, SPO2 98% HR 82, RR 18. NO S/S OF RESPIRATORY DISTRESS. HHN TX NOT INDICATED AT THIS TIME. WILL CONTINUE TO MONITOR.
[2020-01-23 06:34] LABS: BUN/Creatinine Ratio 6.1; Calcium 7.8 mg/dL (8.5-10.1); Phosphorus 5.1 mg/dL (2.5-4.90)
[2020-01-23] MEDS: InsuLIN REG 1unit/0.01ml Soln (100units/ml) SC SCH ×4 (06:42→21:35)
--- NOTE | 2020-01-23 07:30 | NUR ---
ROUNDS PT SITTING IN BED AWAKE A&O WITH NO C/O PAIN PT TELE IN PLACE, IV INTACT, BED IN LOW POSITION RESPIRATIONS EQUAL AND UNLABORED, NO S/S OF DISTRESS WILL CONTINUE TO MONITOR
[2020-01-23 08:49] VITALS: BP 129/67
--- NOTE | 2020-01-23 09:25 | NUR ---
DR TELLEZ AT BEDSIDE
[2020-01-23] MEDS: SACUBITRIL-VALSARTAN 24mg/26mg TAB PO SCH ×2 (10:00→21:14)
[2020-01-23] MEDS ORDERED: AZITHROMYCIN 500MG/ 250ML 250 ML IV SCH (10:00)
[2020-01-23] MEDS ORDERED: SODIUM CHL 0.9% 1000 ML BAG XX ONE (11:00)
[2020-01-23 11:26] LABS: % Iron Saturation 98.8 % (20-55)
[2020-01-23] MEDS: SEVELAMER 800 MG TAB PO SCH ×3 (11:39→18:00)
[2020-01-23] MEDS: FUROSEMIDE 100 MG/10ML VIAL IV SCH (11:40)
[2020-01-23] MEDS: CARVEDILOL 12.5 MG TAB PO SCH ×2 (11:41→21:13)
[2020-01-23] MEDS: PANTOPRAZOLE 40 MG TAB PO SCH (11:42)
[2020-01-23] MEDS: DOXYCYCLINE 100MG/250ML 250 ML IV SCH ×2 (11:46→22:44)
[2020-01-23] MEDS: Glucerna Carbsteady SHAKE Vanilla 8oz PO SCH ×2 (12:00→18:07)
[2020-01-23 12:41] VITALS: BP 138/84
--- NOTE | 2020-01-23 15:00 | NUR ---
HEMODIALYSIS PT NOTIFIED THAT HE WAS CONFIRMED ON THE DIALYSIS SCHEDULE TODAY.
[2020-01-23 16:16] VITALS: BP 127/65
--- NOTE | 2020-01-23 16:55 | NUR ---
HEMODIALYSIS AT BEDSIDE NS & HEPARIN PULLED AND PROVIDED TO HD RN
--- NOTE | 2020-01-23 19:30 | NUR ---
Received report from the Day Shift RN Suzie. Pt. in bed resting, calm and quiet.
--- NOTE | 2020-01-23 19:30 | NUR ---
Pt. HD done for today with 2.5 L output and the HD Access @ the Right Upper Chest. Keep clean, dry and intact. Next HD is on .
--- NOTE | 2020-01-23 19:31 | NUR ---
SR @ 83 with BBB @ the monitor Tele # 17. Pt. denies chest pain and denies chest discomfort.
--- NOTE | 2020-01-23 20:00 | NUR ---
Assessment done and completed.
[2020-01-23] MEDS ORDERED: EPOETIN ALFA 10,000 UNIT/1 ML VIAL SC ONE (21:00)
[2020-01-23] MEDS: cefTRIAXone 1GM/50ML D5W 50 ML IV SCH (21:08)
--- NOTE | 2020-01-23 21:13 | NUR ---
Due meds. as scheduled given @ this time. Pt. provided health teachings on the use and mechanism of actions of the scheduled meds. Pt. verbalized understanding.
--- NOTE | 2020-01-23 21:22 | NUR ---
Accucheck taken with result of BS = 167
--- NOTE | 2020-01-23 21:35 | NUR ---
Pt. received 3 units of Regular Human Insulin SQ @ the TAYLA for BS = 167. Pt. aware of the blood sugar result tonight.
[2020-01-23] MEDS: INSULIN LANTUS (GLARGINE) 1 /0.01ml (100units/ml) SC SCH (21:36)
--- NOTE | 2020-01-23 21:36 | NUR ---
Pt. given Lantus 20 units @ . SQ @ the DRE. BS = 167. Pt. given snacks , 1 sandwich and 2 Jellos @ .
[2020-01-23 22:00] VITALS: BP 162/75
--- NOTE | 2020-01-23 22:30 | NUR ---
Pt. is not ready and unable to give urine sample for U/A bacterial Culture. Pt. verbalized he's not ready or not feeling to void s/p HD today.
--- NOTE | 2020-01-23 22:44 | NUR ---
Pt. given Vibramycin IV 100 mg./250 ms. @ 125 ml./hr. to run over 2 hrs. connected to the LFA G # 18.
--- NOTE | 2020-01-24 | NUR ---
Pt. sleeping and calm @ this time. Keep pt. room environment free from noise and dim-lighted to facilitate proper rest and sleep.
--- NOTE | 2020-01-24 02:00 | NUR ---
Pt. turned/repositioned and scooted HOB up and covered pt. with blanket. Pt. returned to sleep. Sitter @ the bedside.
--- NOTE | 2020-01-24 04:00 | NUR ---
Pt. sleeping without disturbance. Maintained a safe and quiet environment with a sitter @ the bedside.
--- NOTE | 2020-01-24 04:30 | NUR ---
Pt. was not able to void for UA Bacterial Culture. Pt. is sleeping and still not ready to provide urine sample. Urine cap @ the bedside and pt. is aware.
[2020-01-24 05:00] VITALS: BP 134/75
[2020-01-24 05:40] LABS: Basophils # (auto) 0.1 10 ^3/uL (0-0.2); Basophils % (auto) 0.9 % (0.0-2.0); Eosinophils # (auto) 0.1 10 ^3/uL (0-0.8); Eosinophils % (auto) 0.8 % (0.0-7.0); Lymphocytes % (auto) 25.7 % (10.0-50.0); Mean Corpuscular Hemoglobin 30.1 pg (28.0-32.0); Mean Corpuscular Hgb Conc. 33.3 g/dL (32.0-36.0); Mean Corpuscular Volume 90.5 fL (80.0-100.0); Monocytes # (auto) 0.7 10 ^3/uL (0-1.3); Monocytes % (auto) 8.6 % (0.0-12.0); Nucleated Red Blood Cells % 0.1 %; Platelet Count (auto) 242 10^3/uL (140-450); Red Blood Cells 2.99 10^6/uL (4.5-5.90); Red Cell Distribution Width 16.9 % (11.8-14.3); White Blood Cell 7.7 10^3/uL (4.4-10.8)
[2020-01-24 06:06] LABS: Potassium 3.9 mmol/L (3.5-5.1)
--- NOTE | 2020-01-24 06:08 | NUR ---
Accucheck taken with result of BS = 224.
--- NOTE | 2020-01-24 06:10 | NUR ---
pt assessed for prn hhn tx. pt is on room air, spo2 99%, hr 79, rr 16. no s/s of respiratory distress. hhn tx not indicated at this time. will continue to monitor.
[2020-01-24 06:12] LABS: BUN/Creatinine Ratio 6.7
[2020-01-24] MEDS: ACCU-CHEK COMFORT CURVE STRIP VI SCH (07:00)
[2020-01-24] MEDS: InsuLIN REG 1unit/0.01ml Soln (100units/ml) SC SCH (07:04)
--- NOTE | 2020-01-24 07:04 | NUR ---
Pt. given 6 units of Regular Human Insulin SQ @ the DRE for BS = 224. Pt. waiting and ready to for his breakfast tray.
[2020-01-24] MEDS: Glucerna Carbsteady SHAKE Vanilla 8oz PO SCH (08:00)
--- NOTE | 2020-01-24 08:10 | NUR ---
Opening Shift Note Received report from night nurse. Assumed care of patient, patient is laying in bed A&Ox4. Respirations are even and non-labored, no S/S of distress or SOB noted, denies any pain at the moment. Patient instructed on POC and to call for assistance as needed, call light within reach. Safety measures in place, bed set to lowest locked position x 2 rails up. Will continue to monitor for changes Q1hr and PRN.
[2020-01-24] MEDS: cefTRIAXone 1GM/50ML D5W 50 ML IV SCH (08:38)
[2020-01-24] MEDS: SEVELAMER 800 MG TAB PO SCH (08:38)
[2020-01-24 09:00] VITALS: BP 137/80
--- NOTE | 2020-01-24 09:16 | NUR ---
Dr. Tim at bedside. MD to see patient. Dr. Tim discussed Discharged instructions with patient and new medications regimen. Patient verbalized understanding.
[2020-01-24] MEDS: SACUBITRIL-VALSARTAN 24mg/26mg TAB PO SCH (10:13)
[2020-01-24] MEDS: FUROSEMIDE 100 MG/10ML VIAL IV SCH (10:13)
[2020-01-24] MEDS: PANTOPRAZOLE 40 MG TAB PO SCH (10:14)
[2020-01-24] MEDS: CARVEDILOL 12.5 MG TAB PO SCH (10:15)
[2020-01-24 12:02] VITALS: BP 137/80
[2020-01-24 13:02] VITALS: BP 126/67
[2020-01-24] MEDS ORDERED: DOXYCYCLINE 100 MG TAB/CAP PO ONE (13:15)
[2020-01-24] MEDS ORDERED: DOXYCYCLINE 100 MG TAB/CAP PO SCH (22:00)
[2020-01-25 09:48] LABS: Hepatitis A Ab IgM Negative; Hepatitis B Core IgM Negative; Hepatitis B Surface Antigen Negative (Negative); Hepatitis C Antibody Negative (Negative)
[2020-03-06] MEDS ORDERED: PANT40TA2 PO (12:04)
[2020-03-06] MEDS ORDERED: FURO1TAB33 PO (12:04)
[2020-03-06] MEDS ORDERED: SUCR1TAB22 PO (12:04)
[2020-03-10] MEDS ORDERED: FAMO20TA10 PO (15:42)
== END 2020-01-24 14:15 | disposition home or self-care (01) | DRG 194 ==
LOC: EDBD 01:42 → ER 01:47 → TELE 01:48 → TELE-CENTR 08:34
PROVIDERS: ADMIT Hospitalist; ATTEND Internal Medicine
DX: I13.2 Hypertensive heart and chronic kidney disease with heart failure and with stage 5 chronic kidney disease, or end stage renal disease (principal); I21.A1 Myocardial infarction type 2; G93.41 Metabolic encephalopathy; E44.0 Moderate protein-calorie malnutrition; E11.22 Type 2 diabetes mellitus with diabetic chronic kidney disease; I50.43 Acute on chronic combined systolic (congestive) and diastolic (congestive) heart failure; E11.65 Type 2 diabetes mellitus with hyperglycemia; D63.8 Anemia in other chronic diseases classified elsewhere; K21.9 Gastro-esophageal reflux disease without esophagitis; J44.9 Chronic obstructive pulmonary disease, unspecified; E87.1 Hypo-osmolality and hyponatremia; N18.6 End stage renal disease; E87.6 Hypokalemia; E87.5 Hyperkalemia; N25.81 Secondary hyperparathyroidism of renal origin; Z99.2 Dependence on renal dialysis; Z83.3 Family history of diabetes mellitus; Z79.4 Long term (current) use of insulin; Z91.19 Patient's noncompliance with other medical treatment and regimen; E88.09 Other disorders of plasma-protein metabolism, not elsewhere classified
CPT/HCPCS: 36415; 71045; 80048; 80053; 80074; 81001; 82010; 82728; 82962; 83036; 83540; 83550; 83605; 83735; 83880; 84100; 84484; 85025; 85379; 85610; 85730; 87040; 87070; 87081; 87804; 87880; 90935; 93005; 93970; C9113; G0378; J0696; J0885; J1642; J1815; J3490

== ENCOUNTER 2020-01-25 00:29 | Inpatient (IN) | payer MEDICAID ==
[~2020-01-25] VITALS: Ht 182.9 cm; Wt 71.8 kg
[~2020-01-25 00:29] MED LIST: B-CO-6 PO; CINA30TA2 PO; DIPH25CA66 PO; INSU100I45 IJ; INSU1INJ19 SC; METH-532 PO; QUET25TA37 PO; SEVE800T8 PO; SIMV10TA84 PO
[2020-01-25 01:19] LABS: Basophils # (auto) 0.1 10 ^3/uL (0-0.2); Basophils % (auto) 0.6 % (0.0-2.0); Eosinophils # (auto) 0.1 10 ^3/uL (0-0.8); Eosinophils % (auto) 1.1 % (0.0-7.0); Hematocrit 26.3 % (41.0-53.0); Hemoglobin 8.7 g/dL (13.5-17.5); Lymphocytes # (auto) 2.1 10 ^3/uL (0.4-5.4); Lymphocytes % (auto) 22.5 % (10.0-50.0); Mean Corpuscular Hemoglobin 30.1 pg (28.0-32.0); Mean Corpuscular Hgb Conc. 33.1 g/dL (32.0-36.0); Monocytes # (auto) 0.8 10 ^3/uL (0-1.3); Monocytes % (auto) 8.8 % (0.0-12.0); Neutrophils # (auto) 6.4 10 ^3/uL (1.6-8.6); Nucleated Red Blood Cells % 0.2 %; Platelet Count (auto) 256 10^3/uL (140-450); Red Blood Cells 2.88 10^6/uL (4.5-5.90); Red Cell Distribution Width 16.7 % (11.8-14.3); White Blood Cell 9.6 10^3/uL (4.4-10.8)
[2020-01-25 01:35] LABS: Albumin 1.4 g/dL (3.4-5.0); BUN/Creatinine Ratio 6.9; Calcium 6.9 mg/dL (8.5-10.1); Potassium 3.8 mmol/L (3.5-5.1)
[2020-01-25 01:39] LABS: INR 1.14 (0.9-1.15); Partial Thromboplastin Time 29.2 sec (23.64-32.05)
[2020-01-25 01:40] LABS: Bilirubin, Total 0.2 mg/dL (0.2-1.0); Total Protein 8.7 g/dL (6.4-8.2)
[2020-01-25] MEDS ORDERED: ENOXAPARIN SOD 80 MG/0.8ML SYRINGE SC ONE (02:00)
[2020-01-25] MEDS ORDERED: NITROGLYCERIN 0.4 MG SL TAB SL PRN (02:45)
[2020-01-25] MEDS ORDERED: DEXTROSE (50%) 50ML SYRG IV PRN (02:45)
[2020-01-25] MEDS ORDERED: MORPHINE SULF INJ 2 MG/ML SYRINGE 1ML IV PRN (02:45)
[2020-01-25] MEDS ORDERED: FUROSEMIDE 20 MG/2 ML VIAL IV ONE (02:45)
[2020-01-25] MEDS ORDERED: TEMAZEPAM 15 MG CAP PO PRN (02:45)
[2020-01-25] MEDS ORDERED: ACETAMINOPHEN 325 MG TAB PO PRN (02:45)
[2020-01-25] MEDS ORDERED: ONDANSETRON HCL 4 MG/2 ML VIAL IV PRN (02:45)
[2020-01-25] MEDS ORDERED: FUROSEMIDE INJECTION 10 ML ONE (03:39)
[2020-01-25 05:00] VITALS: BP 155/75
[2020-01-25] MEDS: InsuLIN REG 1unit/0.01ml Soln (100units/ml) SC SCH ×4 (05:35→22:15)
[2020-01-25] MEDS: ACCU-CHEK COMFORT CURVE STRIP VI SCH ×3 (05:36→17:37)
[2020-01-25] MEDS ORDERED: FUROSEMIDE 40 MG/4 ML VIAL IV SCH (06:00)
[2020-01-25] MEDS: SEVELAMER 800 MG TAB PO SCH ×3 (07:52→17:42)
[2020-01-25 08:00] VITALS: BP 124/64
[2020-01-25] MEDS ORDERED: SODIUM CHL 0.9% 1000 ML BAG XX ONE (09:15)
[2020-01-25] MEDS: SACUBITRIL-VALSARTAN 24mg/26mg TAB PO SCH ×2 (09:35→22:22)
[2020-01-25] MEDS: PANTOPRAZOLE 40 MG TAB PO SCH (09:35)
[2020-01-25] MEDS: ASPirin 81 mg TAB PO SCH (09:36)
[2020-01-25] MEDS: CARVEDILOL 12.5 MG TAB PO SCH ×3 (10:00→22:24)
[2020-01-25] MEDS: Glucerna Carbsteady SHAKE Vanilla 8oz PO SCH ×3 (11:57→18:34)
[2020-01-25 12:00] VITALS: BP 153/81
[2020-01-25 16:41] VITALS: BP 147/73
[2020-01-25] MEDS: FUROSEMIDE 100 MG/10ML VIAL IV SCH (18:21)
[2020-01-25 20:00] VITALS: BP 139/76
[2020-01-25] MEDS ORDERED: EPOETIN ALFA 10,000 UNIT/1 ML VIAL SC ONE (21:00)
[2020-01-25 21:26] VITALS: BP 133/71
[2020-01-25] MEDS: ATORVASTATIN 20 MG TAB PO SCH (22:24)
[2020-01-26 05:31] VITALS: BP 138/74
[2020-01-26] MEDS: InsuLIN REG 1unit/0.01ml Soln (100units/ml) SC SCH ×6 (05:56→21:24)
[2020-01-26] MEDS: ACCU-CHEK COMFORT CURVE STRIP VI SCH ×4 (05:57→17:25)
[2020-01-26] MEDS: FUROSEMIDE 100 MG/10ML VIAL IV SCH ×2 (06:45→17:24)
[2020-01-26 07:06] LABS: Basophils # (auto) 0.1 10 ^3/uL (0-0.2); Basophils % (auto) 0.8 % (0.0-2.0); Eosinophils # (auto) 0.1 10 ^3/uL (0-0.8); Eosinophils % (auto) 1.9 % (0.0-7.0); Hematocrit 29.2 % (41.0-53.0); Hemoglobin 9.4 g/dL (13.5-17.5); Lymphocytes # (auto) 1.7 10 ^3/uL (0.4-5.4); Lymphocytes % (auto) 27.1 % (10.0-50.0); Mean Corpuscular Hgb Conc. 32.2 g/dL (32.0-36.0); Mean Corpuscular Volume 93.1 fL (80.0-100.0); Monocytes # (auto) 0.6 10 ^3/uL (0-1.3); Monocytes % (auto) 9.5 % (0.0-12.0); Neutrophils # (auto) 3.8 10 ^3/uL (1.6-8.6); Neutrophils % (auto) 60.7 % (37.0-80.0); Nucleated Red Blood Cells % 0.1 %; Platelet Count (auto) 254 10^3/uL (140-450); Red Blood Cells 3.14 10^6/uL (4.5-5.90); Red Cell Distribution Width 17.4 % (11.8-14.3); White Blood Cell 6.2 10^3/uL (4.4-10.8)
[2020-01-26 07:23] LABS: INR 1.07 (0.9-1.15); Partial Thromboplastin Time 28.6 sec (23.64-32.05)
[2020-01-26 07:26] LABS: Calcium 7.2 mg/dL (8.5-10.1); Potassium 4.5 mmol/L (3.5-5.1)
[2020-01-26 07:30] LABS: BUN/Creatinine Ratio 6.6
[2020-01-26] MEDS ORDERED: HEPARIN IN NS 1000Units/500mL 0 ML ONE ×2 (07:38→10:43)
[2020-01-26] MEDS ORDERED: IODIXANOL 320MG/ML 100ML BTL IV ONE ×3 (07:38→12:29)
[2020-01-26] MEDS ORDERED: LIDOCAINE 2%HCL (LOCAL ANESTH.) INJ 20ML MDV ONE ×2 (07:38→10:43)
[2020-01-26 08:00] VITALS: BP 137/75
[2020-01-26] MEDS: Glucerna Carbsteady SHAKE Vanilla 8oz PO SCH ×3 (08:00→17:25)
[2020-01-26] MEDS: SEVELAMER 800 MG TAB PO SCH ×3 (08:00→17:25)
[2020-01-26] MEDS ORDERED: InsuLIN REG 1unit/0.01ml Soln (100units/ml) IV ONE (08:45)
[2020-01-26] MEDS: ASPirin 81 mg TAB PO SCH (08:52)
[2020-01-26] MEDS: CARVEDILOL 12.5 MG TAB PO SCH ×2 (08:52→21:35)
[2020-01-26] MEDS: SACUBITRIL-VALSARTAN 24mg/26mg TAB PO SCH ×2 (08:52→21:35)
[2020-01-26] MEDS: PANTOPRAZOLE 40 MG TAB PO SCH (08:53)
[2020-01-26 09:00] VITALS: BP 137/75
[2020-01-26] MEDS: INSULIN LANTUS (GLARGINE) 1 /0.01ml (100units/ml) SC SCH (09:01)
[2020-01-26] MEDS ORDERED: IOHEXOL 350 MG/ML 100ML IJ ONE (10:43)
[2020-01-26] MEDS ORDERED: fentaNYL CITRATE 100 MCG/2 ML VL ONE (10:48)
[2020-01-26] MEDS ORDERED: ANGIOMAX 250 MG VIAL IV ONE (10:48)
[2020-01-26] MEDS ORDERED: SODIUM CHL 0.9% 50 ML ONE (10:49)
[2020-01-26] MEDS ORDERED: MIDAZOLAM HCL 1MG/1ML-2 ML VIAL ONE (10:49)
[2020-01-26] MEDS ORDERED: ASPirin 325 MG TAB ONE (12:54)
[2020-01-26] MEDS ORDERED: CLOPIDOGREL 300 MG TAB ONE (12:54)
[2020-01-26 17:00] VITALS: BP 137/72
[2020-01-26] MEDS: ATORVASTATIN 20 MG TAB PO SCH (21:34)
[2020-01-26] MEDS: SODIUM CHLOR 0.9% PF (SALINE LOCK) 10ML VIAL/SYR IV SCH (21:34)
[2020-01-26 22:00] VITALS: BP 155/85
[2020-01-27] MEDS: ACCU-CHEK COMFORT CURVE STRIP VI SCH ×2 (00:01→05:45)
[2020-01-27] MEDS: InsuLIN REG 1unit/0.01ml Soln (100units/ml) SC SCH ×5 (02:00→17:58)
[2020-01-27 05:00] VITALS: BP 140/68
[2020-01-27] MEDS: SODIUM CHLOR 0.9% PF (SALINE LOCK) 10ML VIAL/SYR IV SCH ×2 (05:45→14:46)
[2020-01-27] MEDS: FUROSEMIDE 100 MG/10ML VIAL IV SCH ×2 (05:45→17:19)
[2020-01-27] MEDS: Glucerna Carbsteady SHAKE Vanilla 8oz PO SCH ×3 (08:00→18:00)
[2020-01-27 09:00] VITALS: BP 137/73
[2020-01-27] MEDS: INSULIN LANTUS (GLARGINE) 1 /0.01ml (100units/ml) SC SCH (09:58)
[2020-01-27] MEDS: SACUBITRIL-VALSARTAN 24mg/26mg TAB PO SCH (09:59)
[2020-01-27] MEDS: ASPirin 81 mg TAB PO SCH (09:59)
[2020-01-27] MEDS: SEVELAMER 800 MG TAB PO SCH ×3 (09:59→17:19)
[2020-01-27] MEDS: PANTOPRAZOLE 40 MG TAB PO SCH (10:00)
[2020-01-27] MEDS: CARVEDILOL 12.5 MG TAB PO SCH (10:00)
[2020-01-27] MEDS ORDERED: CLOPIDOGREL BISULFATE 75 MG TAB PO SCH (10:00)
[2020-01-27] MEDS ORDERED: SODIUM CHL 0.9% 1000 ML BAG XX ONE (12:00)
[2020-01-27 13:00] VITALS: BP_SYST 145; BP_SYST 161; BP_DIAS 66; BP_DIAS 78
[2020-01-27 17:00] VITALS: BP 144/77
[2020-01-27] MEDS ORDERED: ACCU-CHEK COMFORT CURVE STRIP VI SCH (18:00)
[2020-01-27] MEDS ORDERED: EPOETIN ALFA 10,000 UNIT/1 ML VIAL SC ONE (21:00)
[2020-01-30] MEDS ORDERED: CARV12.544 PO (12:04)
[2020-01-30] MEDS ORDERED: SEVE800T20 PO (12:48)
== END 2020-01-27 18:44 | disposition home or self-care (01) | DRG 174 ==
LOC: EDBD 00:29 → ER 00:31 → TELE 00:32 → TELE-WESTW 03:54
PROVIDERS: ADMIT Nurse Practitioner; ATTEND Internal Medicine Nephrology
PROC: 5A1D70Z Performance of Urinary Filtration, Intermittent, Less than 6 Hours Per Day (ICD-10-PCS; 2020-01-25)
PROC: 027035Z Dilation of Coronary Artery, One Artery with Two Drug-eluting Intraluminal Devices, Percutaneous Approach (ICD-10-PCS; principal; 2020-01-26)
PROC: B240ZZ3 Ultrasonography of Single Coronary Artery, Intravascular (ICD-10-PCS; 2020-01-26)
PROC: 4A023N8 Measurement of Cardiac Sampling and Pressure, Bilateral, Percutaneous Approach (ICD-10-PCS; 2020-01-26)
PROC: B211YZZ Fluoroscopy of Multiple Coronary Arteries using Other Contrast (ICD-10-PCS; 2020-01-26)
PROC: B215YZZ Fluoroscopy of Left Heart using Other Contrast (ICD-10-PCS; 2020-01-26)
PROC: 5A1D70Z Performance of Urinary Filtration, Intermittent, Less than 6 Hours Per Day (ICD-10-PCS; 2020-01-27)
DX: I21.4 Non-ST elevation (NSTEMI) myocardial infarction (principal); I13.2 Hypertensive heart and chronic kidney disease with heart failure and with stage 5 chronic kidney disease, or end stage renal disease; E11.22 Type 2 diabetes mellitus with diabetic chronic kidney disease; E44.0 Moderate protein-calorie malnutrition; I27.20 Pulmonary hypertension, unspecified; E87.1 Hypo-osmolality and hyponatremia; I08.3 Combined rheumatic disorders of mitral, aortic and tricuspid valves; E88.09 Other disorders of plasma-protein metabolism, not elsewhere classified; N18.6 End stage renal disease; I50.43 Acute on chronic combined systolic (congestive) and diastolic (congestive) heart failure; I50.82 Biventricular heart failure; D63.1 Anemia in chronic kidney disease; N25.81 Secondary hyperparathyroidism of renal origin; J44.9 Chronic obstructive pulmonary disease, unspecified; K21.9 Gastro-esophageal reflux disease without esophagitis; Z79.4 Long term (current) use of insulin; Z99.2 Dependence on renal dialysis; Z83.3 Family history of diabetes mellitus; Z68.21 Body mass index [BMI] 21.0-21.9, adult; Z79.82 Long term (current) use of aspirin; Z79.899 Other long term (current) drug therapy
CPT/HCPCS: 36415; 71045; 80048; 80053; 82962; 83036; 83880; 84484; 85025; 85379; 85610; 85730; 87081; 90935; 92928; 92978; 93005; 93460; 96372; 96374; 99152; 99153; C1751; C1874; C1887; G0378; J0885; J1642; J1815; J2250; Q9967

== ENCOUNTER 2020-01-29 00:16 | Inpatient (IN) | payer MEDICAID ==
[~2020-01-29] VITALS: Ht 180.3 cm; Wt 88.7 kg
[~2020-01-29 00:16] MED LIST changes: +VERA120T6 PO
[2020-01-29] MEDS ORDERED: InsuLIN REG 1unit/0.01ml Soln (100units/ml) IV ONE (00:30)
[2020-01-29 00:52] LABS: Basophils # (auto) 0.1 10 ^3/uL (0-0.2); Eosinophils # (auto) 0.2 10 ^3/uL (0-0.8); Hemoglobin 8.2 g/dL (13.5-17.5); Lymphocytes # (auto) 2.2 10 ^3/uL (0.4-5.4); Neutrophils # (auto) 3.1 10 ^3/uL (1.6-8.6); Nucleated Red Blood Cells % 0.2 %; White Blood Cell 6.3 10^3/uL (4.4-10.8)
[2020-01-29 00:53] LABS: Eosinophils % (auto) 2.9 % (0.0-7.0); Hematocrit 24.9 % (41.0-53.0); Lymphocytes % (auto) 35.4 % (10.0-50.0); Mean Corpuscular Hemoglobin 30.7 pg (28.0-32.0); Mean Corpuscular Volume 93.2 fL (80.0-100.0); Monocytes # (auto) 0.6 10 ^3/uL (0-1.3); Monocytes % (auto) 9.9 % (0.0-12.0); Neutrophils % (auto) 49.8 % (37.0-80.0); Platelet Count (auto) 241 10^3/uL (140-450); Red Blood Cells 2.67 10^6/uL (4.5-5.90); Red Cell Distribution Width 18.5 % (11.8-14.3)
[2020-01-29 01:05] LABS: INR 1.08 (0.9-1.15)
[2020-01-29 01:21] LABS: Albumin 1.7 g/dL (3.4-5.0); BUN/Creatinine Ratio 5.1; Calcium 7.2 mg/dL (8.5-10.1); Magnesium 2.3 mg/dL (1.6-2.6)
[2020-01-29 01:27] LABS: Bilirubin, Total 0.2 mg/dL (0.2-1.0); Total Protein 9.4 g/dL (6.4-8.2)
[2020-01-29] MEDS ORDERED: FUROSEMIDE 40 MG/4 ML VIAL IV ONE (02:45)
[2020-01-29] MEDS ORDERED: NITROGLYCERIN 0.4 MG SL TAB SL PRN (04:45)
[2020-01-29] MEDS ORDERED: LORazepam 0.5 MG TAB PO PRN (04:45)
[2020-01-29] MEDS ORDERED: DOCUSATE SOD 100 MG CAP PO PRN (04:45)
[2020-01-29] MEDS ORDERED: HYDROcodone-ACET 5/325MG TAB PO PRN (04:45)
[2020-01-29] MEDS ORDERED: ACETAMINOPHEN 325 MG TAB PO PRN (04:45)
[2020-01-29] MEDS ORDERED: MORPHINE SULF INJ 2 MG/ML SYRINGE 1ML IV PRN ×2 (04:45→05:15)
[2020-01-29] MEDS ORDERED: ONDANSETRON HCL 4 MG/2 ML VIAL IV PRN (04:45)
[2020-01-29] MEDS ORDERED: IPRATROPIUM BROM 0.5 MG/2.5ML INH SOL NEB PRN (04:45)
[2020-01-29] MEDS ORDERED: ALBUTEROL SULF 2.5 MG/0.5ML(0.5%) NEB SOLN NEB PRN (04:45)
[2020-01-29] MEDS ORDERED: DEXTROSE (50%) 50ML SYRG IV PRN (04:45)
[2020-01-29] MEDS ORDERED: MORPHINE SULFATE 4 MG/ML SYR/VIAL IV PRN (04:45)
[2020-01-29 07:07] LABS: Basophils # (auto) 0.1 10 ^3/uL (0-0.2); Basophils % (auto) 0.8 % (0.0-2.0); Eosinophils # (auto) 0.2 10 ^3/uL (0-0.8); Eosinophils % (auto) 2.6 % (0.0-7.0); Hematocrit 25.7 % (41.0-53.0); Hemoglobin 8.5 g/dL (13.5-17.5); Lymphocytes % (auto) 28.4 % (10.0-50.0); Mean Corpuscular Hemoglobin 30.2 pg (28.0-32.0); Mean Corpuscular Hgb Conc. 33.1 g/dL (32.0-36.0); Mean Corpuscular Volume 91.3 fL (80.0-100.0); Monocytes # (auto) 0.8 10 ^3/uL (0-1.3); Neutrophils % (auto) 57.2 % (37.0-80.0); Nucleated Red Blood Cells % 0.1 %; Platelet Count (auto) 262 10^3/uL (140-450); Red Blood Cells 2.81 10^6/uL (4.5-5.90); Red Cell Distribution Width 18.5 % (11.8-14.3); White Blood Cell 6.9 10^3/uL (4.4-10.8)
[2020-01-29 07:26] LABS: BUN/Creatinine Ratio 4.9; Potassium 4.3 mmol/L (3.5-5.1)
[2020-01-29] MEDS: InsuLIN REG 1unit/0.01ml Soln (100units/ml) SC SCH ×4 (08:09→20:14)
[2020-01-29] MEDS: ACCU-CHEK COMFORT CURVE STRIP VI SCH ×4 (08:09→20:14)
--- NOTE | 2020-01-29 08:55 | NUR ---
PT ARRIVED TO UNIT VIA WHEELCHAIR. ALERT, AWAKE, ORIENTED x4 DENIES ANY DISCOMFORT AT MOMENT. EFFORTLESS BREATHING ON ROOM AIR. PT ORIENTED TO ROOM ENVIRONMENT. BED LOCKED AND IN LOWEST POSITION, CALL LIGHT WITHIN REACH. WILL CONTINUE TO MONITOR.
[2020-01-29 09:20] VITALS: BP 166/82
[2020-01-29] MEDS: CARVEDILOL 12.5 MG TAB PO ONE ×2 (10:15→11:14)
[2020-01-29] MEDS ORDERED: SACUBITRIL-VALSARTAN 24mg/26mg TAB PO SCH (10:15)
[2020-01-29] MEDS ORDERED: ADENOSINE 65 MG in GIVE UN-DILUTED 0 ML IV STA (10:52)
[2020-01-29] MEDS: methylPREDNISolone SOD SUCC 125 MG/2 ML VL IV SCH (11:13)
[2020-01-29] MEDS: FUROSEMIDE 40 MG/4 ML VIAL IV SCH (11:13)
--- NOTE | 2020-01-29 11:23 | NUR ---
PT TAKEN TO STRESS TEST. TRANSPORTED VIA WHEELCHAIR. NO S/S OF DISTRESS.
--- NOTE | 2020-01-29 12:50 | NUR ---
PT BACK FROM STRESS TEST. NO S/S OF DISTRESS AT MOMENT. CALL LIGHT WITHIN REACH.
[2020-01-29 13:00] VITALS: BP 156/83
--- NOTE | 2020-01-29 13:00 | NUR ---
IV CATHETER LAC#18 DC'D CATHETER INTACT. NO PHLEBITIS, HEMATOMA. PT TOLERATED PROCEDURE WELL.
--- NOTE | 2020-01-29 14:27 | NUR ---
MRSA SPECIMEN COLLECTED, SENT TO LAB.
[2020-01-29 17:00] VITALS: BP 156/88
[2020-01-29] MEDS: Glucerna Carbsteady SHAKE Vanilla 8oz PO SCH (18:05)
--- NOTE | 2020-01-29 20:00 | NUR ---
Opening Shift Note Assumed care of patient, awake, alert and oriented. No S/S of distress/SOB or pain. Instructed on POC and to call for assist PRN. Bed locked, in lowest position, call light within reach, side rails up x2. Will continue to monitor for changes Q1hr and PRN.
--- NOTE | 2020-01-29 20:40 | NUR ---
Respiratory note: AT BEDSIDE TO ASSESS PT FOR PRN TX/ TX NOT INDICATED AT THIS TIME. BS ARE CLEAR T/O, HR 80S, POX 97-98% ON RA. NO S/S OF DISTRESS NOTED AT THIS TIME. PT AWARE I CAN BE PAGED AT ANY TIME HE EXPERIENCES ANY CONCERN WITH HIS BREATHING. RT NAME AND PAGER ASSIGNMENT WRITTEN ON PTS ROOM BOARD. WILL CONTINUE TO MONITOR NEEDED.
[2020-01-29] MEDS: SACUBITRIL-VALSARTAN 24mg/26mg TAB PO SCH (22:39)
[2020-01-29] MEDS: CARVEDILOL 12.5 MG TAB PO SCH (22:40)
[2020-01-30] MEDS: InsuLIN REG 1unit/0.01ml Soln (100units/ml) SC SCH ×6 (00:25→20:06)
[2020-01-30] MEDS: ACCU-CHEK COMFORT CURVE STRIP VI SCH ×6 (00:25→20:07)
[2020-01-30 04:44] VITALS: BP 145/80
[2020-01-30 05:00] VITALS: BP 144/73
[2020-01-30 05:48] LABS: Basophils # (auto) 0 10 ^3/uL (0-0.2); Basophils % (auto) 0.3 % (0.0-2.0); Eosinophils # (auto) 0 10 ^3/uL (0-0.8); Hematocrit 26.6 % (41.0-53.0); Lymphocytes % (auto) 14.1 % (10.0-50.0); Mean Corpuscular Hemoglobin 30.8 pg (28.0-32.0); Mean Corpuscular Hgb Conc. 33.6 g/dL (32.0-36.0); Mean Corpuscular Volume 91.7 fL (80.0-100.0); Monocytes # (auto) 0.4 10 ^3/uL (0-1.3); Monocytes % (auto) 5.5 % (0.0-12.0); Neutrophils # (auto) 5.9 10 ^3/uL (1.6-8.6); Neutrophils % (auto) 80.1 % (37.0-80.0); Nucleated Red Blood Cells % 0.2 %; Platelet Count (auto) 250 10^3/uL (140-450); Red Blood Cells 2.91 10^6/uL (4.5-5.90); Red Cell Distribution Width 18.3 % (11.8-14.3); White Blood Cell 7.3 10^3/uL (4.4-10.8)
[2020-01-30 06:09] LABS: Calcium 8.1 mg/dL (8.5-10.1); Potassium 5.2 mmol/L (3.5-5.1)
[2020-01-30 06:16] LABS: BUN/Creatinine Ratio 6.2
--- NOTE | 2020-01-30 06:25 | NUR ---
Critical lab Paged hospitalist
--- NOTE | 2020-01-30 06:29 | NUR ---
Call received from hospitalist MD Murray notified about 2 critical lab values. No new orders received.
[2020-01-30] MEDS ORDERED: SODIUM CHL 0.9% 1000 ML BAG XX ONE (07:00)
--- NOTE | 2020-01-30 07:01 | NUR ---
PRN MN TX NOT INDICATED AT THIS TIME. PT ON RA, 96% O2 SATS, HR 73 BPM, RR20 BPM, RESPIRATION IS EQUAL AND NON LABORED. NO SOB OR ANY OTHER RESPIRATORY DISTRESS NOTED. WILL CONTINUE TO MONITOR PT.
[2020-01-30] MEDS: Glucerna Carbsteady SHAKE Vanilla 8oz PO SCH ×3 (08:03→17:44)
[2020-01-30 09:19] VITALS: BP 129/87
[2020-01-30] MEDS: CARVEDILOL 12.5 MG TAB PO SCH ×2 (10:00→21:19)
[2020-01-30] MEDS: SACUBITRIL-VALSARTAN 24mg/26mg TAB PO SCH ×2 (10:00→21:18)
[2020-01-30] MEDS: FUROSEMIDE 40 MG/4 ML VIAL IV SCH (10:00)
[2020-01-30] MEDS: methylPREDNISolone SOD SUCC 125 MG/2 ML VL IV SCH (10:56)
[2020-01-30] MEDS ORDERED: CARV12.544 PO ×2 (12:04)
[2020-01-30] MEDS: FUROSEMIDE 100 MG/10ML VIAL IV SCH (12:15)
[2020-01-30] MEDS ORDERED: SEVE800T20 PO ×2 (12:48)
[2020-01-30 13:00] VITALS: BP 126/81
--- NOTE | 2020-01-30 14:48 | NUR ---
I received a call from patient's contact Idalia Mera (she was able to provide me with password)-she is wanting him transferred to [facility] because she is not happy with the care here. I explained the transfer process to her-letting her know that it had to start with an order from the physician, and there had to be a medical reason to transfer patient (something the other facility can do that we can not do here). I also let her know that with the COVID-19 crisis going on, it is a much more difficult process transferring patients to other facilities. I let her know that [facility] is only accepting life threatening transfers at this time. I suggested that she speak with patient's attending physician regarding the plan of care for this patient and her concerns. I spoke with Dr. Tim and made him aware of her concerns as well.
[2020-01-30 16:39] VITALS: BP 141/83
--- NOTE | 2020-01-30 19:30 | NUR ---
OPENING NOTE Received report from day shift RN. Patient is A&O X's 4 with no s/s of distress and reports no pain. Educated patient on POC and to use call light when in need of assistance. Patient verbalized understanding. Bed is in lowest/locked position with side rails up X's 2 and call light is within reach of patient. Will continue care.
[2020-01-30] MEDS ORDERED: EPOETIN ALFA 10,000 UNIT/1 ML VIAL SC ONE (21:00)
[2020-01-30 22:00] VITALS: BP 130/80
--- NOTE | 2020-01-30 22:34 | NUR ---
Respiratory note: NO PRN TX GIVEN AT THIS TIME, NOT INDICATED. SPO2 97% ON RA, HR 74, RR 16. NO SOB NOTED.
[2020-01-31] MEDS: InsuLIN REG 1unit/0.01ml Soln (100units/ml) SC SCH ×4 (00:01→13:50)
[2020-01-31] MEDS: ACCU-CHEK COMFORT CURVE STRIP VI SCH ×4 (00:01→12:00)
[2020-01-31 05:15] VITALS: BP 144/77
[2020-01-31 05:45] LABS: Basophils # (auto) 0.1 10 ^3/uL (0-0.2); Eosinophils # (auto) 0.1 10 ^3/uL (0-0.8); Eosinophils % (auto) 1.5 % (0.0-7.0); Hematocrit 28.1 % (41.0-53.0); Hemoglobin 9.5 g/dL (13.5-17.5); Lymphocytes # (auto) 3.1 10 ^3/uL (0.4-5.4); Lymphocytes % (auto) 36.9 % (10.0-50.0); Mean Corpuscular Hemoglobin 30.7 pg (28.0-32.0); Mean Corpuscular Hgb Conc. 33.9 g/dL (32.0-36.0); Mean Corpuscular Volume 90.7 fL (80.0-100.0); Monocytes # (auto) 0.8 10 ^3/uL (0-1.3); Monocytes % (auto) 10.2 % (0.0-12.0); Neutrophils # (auto) 4.2 10 ^3/uL (1.6-8.6); Neutrophils % (auto) 50.4 % (37.0-80.0); Platelet Count (auto) 322 10^3/uL (140-450); Red Blood Cells 3.09 10^6/uL (4.5-5.90); White Blood Cell 8.3 10^3/uL (4.4-10.8)
[2020-01-31 06:05] LABS: Potassium 4.7 mmol/L (3.5-5.1)
[2020-01-31 06:09] LABS: BUN/Creatinine Ratio 6.1; Calcium 7.5 mg/dL (8.5-10.1)
[2020-01-31 08:00] VITALS: BP 130/73
--- NOTE | 2020-01-31 08:07 | NUR ---
Respiratory note: PT IS AWAKE, AND ALERT. NO RESPIRATORY DISTRESS NOTED. SPO2 98% ON RA, HR 75, RR 18, BS CLEAR BILATERALLY. PRN MEDNEB TX NOT INDICATED AT THIS TIME. PT INFORMED TO PUSH CALL BUTTON IF INCREASED WOB, SOB, OR WHEEZING OCCURS.
[2020-01-31] MEDS: Glucerna Carbsteady SHAKE Vanilla 8oz PO SCH ×2 (08:55→12:47)
[2020-01-31 09:00] VITALS: BP 130/73
[2020-01-31] MEDS: FUROSEMIDE 100 MG/10ML VIAL IV SCH (09:55)
[2020-01-31] MEDS: methylPREDNISolone SOD SUCC 125 MG/2 ML VL IV SCH (09:56)
[2020-01-31] MEDS: CARVEDILOL 12.5 MG TAB PO SCH (09:57)
[2020-01-31] MEDS: SACUBITRIL-VALSARTAN 24mg/26mg TAB PO SCH (09:57)
[2020-01-31] MEDS ORDERED: SEVELAMER 800 MG TAB PO SCH (12:00)
[2020-01-31 13:00] VITALS: BP 137/74
[2020-01-31 15:26] VITALS: BP 137/74
--- NOTE | 2020-01-31 16:50 | NUR ---
patient discharged per MD's order. alert and oriented x4. discharge paperwork and prescription provide to patient. patient verbalized understanding of discharge instructions. IV access line and tele box sent to ICU. No s/s of distress noted at time of discharge.
[2020-02-01] MEDS ORDERED: SODIUM CHL 0.9% 1000 ML BAG XX ONE (07:00)
[2020-02-01] MEDS ORDERED: EPOETIN ALFA 10,000 UNIT/1 ML VIAL SC ONE (21:00)
[2020-03-06] MEDS ORDERED: FURO1TAB33 PO (12:04)
[2020-03-06] MEDS ORDERED: SUCR1TAB22 PO (12:04)
[2020-03-06] MEDS ORDERED: PANT40TA2 PO (12:04)
[2020-03-10] MEDS ORDERED: FAMO20TA10 PO (15:42)
== END 2020-01-31 16:50 | disposition home or self-care (01) | DRG 194 ==
LOC: EDBD 00:16 → ER 00:19 → TELE 00:20 → TELE-WESTW 08:51
PROVIDERS: ADMIT Hospitalist; ATTEND Internal Medicine
PROC: 5A1D70Z Performance of Urinary Filtration, Intermittent, Less than 6 Hours Per Day (ICD-10-PCS; principal; 2020-01-30)
DX: I13.2 Hypertensive heart and chronic kidney disease with heart failure and with stage 5 chronic kidney disease, or end stage renal disease (principal); I21.A1 Myocardial infarction type 2; E43 Unspecified severe protein-calorie malnutrition; I50.43 Acute on chronic combined systolic (congestive) and diastolic (congestive) heart failure; E11.22 Type 2 diabetes mellitus with diabetic chronic kidney disease; N18.6 End stage renal disease; E11.65 Type 2 diabetes mellitus with hyperglycemia; Z99.2 Dependence on renal dialysis; E87.1 Hypo-osmolality and hyponatremia; D63.1 Anemia in chronic kidney disease; I25.10 Atherosclerotic heart disease of native coronary artery without angina pectoris; E11.21 Type 2 diabetes mellitus with diabetic nephropathy; J44.9 Chronic obstructive pulmonary disease, unspecified; K21.9 Gastro-esophageal reflux disease without esophagitis; I42.9 Cardiomyopathy, unspecified; E83.39 Other disorders of phosphorus metabolism; Z79.4 Long term (current) use of insulin; Z91.11 Patient's noncompliance with dietary regimen; Z91.19 Patient's noncompliance with other medical treatment and regimen; Z95.5 Presence of coronary angioplasty implant and graft; Z68.23 Body mass index [BMI] 23.0-23.9, adult
CPT/HCPCS: 36415; 36600; 71045; 78452; 80048; 80053; 82010; 82306; 82805; 82962; 83036; 83735; 83880; 83970; 84100; 84484; 85025; 85610; 85730; 87081; 90935; 93005; 93017; 96372; G0378; J0153; J0885; J1642; J1815

== ENCOUNTER 2020-02-08 06:45 | Inpatient (IN) | payer MEDICAID ==
[~2020-02-08] VITALS: Ht 175.3 cm; Wt 78.2 kg
[2020-02-08] VITALS (7 sets, daily range): BP systolic 146–173; BP diastolic 67–92
[~2020-02-08 06:45] MED LIST changes: +CARV12.544 PO; +SEVE800T20 PO; -SEVE800T8 PO; -VERA120T6 PO
[2020-02-08] MEDS ORDERED: InsuLIN REG 1unit/0.01ml Soln (100units/ml) IV ONE (07:15)
[2020-02-08 07:33] LABS: Basophils # (auto) 0.1 10 ^3/uL (0-0.2); Eosinophils # (auto) 0.1 10 ^3/uL (0-0.8); Eosinophils % (auto) 1.6 % (0.0-7.0); Hematocrit 27.2 % (41.0-53.0); Hemoglobin 8.9 g/dL (13.5-17.5); Lymphocytes # (auto) 1.5 10 ^3/uL (0.4-5.4); Lymphocytes % (auto) 27.6 % (10.0-50.0); Mean Corpuscular Hemoglobin 30.8 pg (28.0-32.0); Mean Corpuscular Hgb Conc. 32.7 g/dL (32.0-36.0); Mean Corpuscular Volume 94.2 fL (80.0-100.0); Monocytes # (auto) 0.6 10 ^3/uL (0-1.3); Monocytes % (auto) 10.2 % (0.0-12.0); Neutrophils # (auto) 3.3 10 ^3/uL (1.6-8.6); Neutrophils % (auto) 59.6 % (37.0-80.0); Nucleated Red Blood Cells % 0.1 %; Platelet Count (auto) 222 10^3/uL (140-450); Red Blood Cells 2.89 10^6/uL (4.5-5.90); Red Cell Distribution Width 19.2 % (11.8-14.3); White Blood Cell 5.5 10^3/uL (4.4-10.8)
[2020-02-08 07:47] LABS: INR 1.07 (0.9-1.15); Partial Thromboplastin Time 28.7 sec (23.64-32.05)
[2020-02-08 07:55] LABS: Calcium 7.4 mg/dL (8.5-10.1)
[2020-02-08 08:00] LABS: BUN/Creatinine Ratio 4.4; Bilirubin, Total 0.3 mg/dL (0.2-1.0); Total Protein 10.1 g/dL (6.4-8.2)
[2020-02-08 08:03] LABS: Potassium 5.7 mmol/L (3.5-5.1)
[2020-02-08] MEDS ORDERED: LABETALOL HCL 5 MG/ML 4ML SYRINGE IV ONE (08:15)
[2020-02-08] MEDS ORDERED: LACTULOSE 20Gm/30ML SOLN PO PRN (08:30)
[2020-02-08] MEDS ORDERED: ALBUTEROL SULF 2.5 MG/0.5ML(0.5%) NEB SOLN NEB PRN (08:30)
[2020-02-08] MEDS ORDERED: NITROGLYCERIN 0.4 MG SL TAB SL PRN (08:30)
[2020-02-08] MEDS ORDERED: SODIUM ZIRCONIUM CYCL 10 GM PAK PO ONE (08:30)
[2020-02-08] MEDS ORDERED: traMADol HCL 50 MG TAB PO PRN ×2 (08:30→09:00)
[2020-02-08] MEDS ORDERED: ACETAMINOPHEN 500 MG TAB PO PRN (08:30)
[2020-02-08] MEDS ORDERED: DEXTROSE (50%) 50ML SYRG IV PRN (08:30)
[2020-02-08] MEDS ORDERED: CLOPIDOGREL BISULFATE 75 MG TAB PO SCH ×2 (08:30→10:00)
[2020-02-08] MEDS ORDERED: LABETALOL HCL 5 MG/ML 4ML SYRINGE IV PRN ×2 (08:30)
[2020-02-08] MEDS ORDERED: MORPHINE SULF INJ 2 MG/ML SYRINGE 1ML IV PRN (08:30)
[2020-02-08] MEDS ORDERED: DOXYCYCLINE 100MG/250ML 250 ML IV SCH (08:30)
[2020-02-08] MEDS ORDERED: CLOPIDOGREL BISULFATE 75 MG TAB PO ONE ×2 (08:30→10:30)
[2020-02-08] MEDS ORDERED: PROMETHAZINE HCL 25 MG/ML 1ML IV PRN (08:30)
[2020-02-08] MEDS ORDERED: FUROSEMIDE 20 MG/2 ML VIAL IV ONE (08:30)
[2020-02-08] MEDS: B-COMPLEX W/ C & FOLIC ACID(NEPHROVITE TAB) PO SCH (09:57)
[2020-02-08] MEDS: ASPirin 81 mg TAB PO SCH (09:57)
[2020-02-08] MEDS: ENOXAPARIN SOD 30 MG/0.3 ML SYRINGE SC SCH (09:59)
[2020-02-08] MEDS ORDERED: FAMOTIDINE 20 MG TAB PO SCH (10:00)
[2020-02-08] MEDS ORDERED: NITROGLYCERIN 0.2MG/HR TOPICAL PATCH TD SCH (10:00)
[2020-02-08] MEDS ORDERED: FUROSEMIDE 40 MG/4 ML VIAL IV SCH (10:00)
[2020-02-08] MEDS ORDERED: CARVEDILOL 3.125 MG TAB PO SCH (10:00)
[2020-02-08 10:10] LABS: Alcohol, Urine < 3.0 mg/dL (0-5); Amphetamine Screen, Urine NEGATIVE (NEGATIVE); Barbiturate Scree,Urine NEGATIVE (NEGATIVE); Benzodiazephine Screen, Urine NEGATIVE (NEGATIVE); Cannabinoid Screen, Urine NEGATIVE (NEGATIVE); Cocaine Screen, Urine NEGATIVE (NEGATIVE); Opiate Scree,Urine NEGATIVE (NEGATIVE); Phencyclidine Screen, Urine NEGATIVE (NEGATIVE)
--- NOTE | 2020-02-08 10:15 | NUR ---
Telemetry admit from [facility] admitted to Telemetry unit after SBAR received. Patient oriented to Vandana Tilley RN primary RN, unit, room, bed, and unit policies regarding patient care and visiting hours. Patient now on continuous telemetry monitoring, tele box #66 and telemetry reading on arrival to unit is sinus rhythm. Patient placed on bedside oxygen at 2L O2 via nasal cannula. Encouraged to call if they need something. All questions and concerns addressed, patient verbalized understanding. Opening Shift Note Assumed care of patient, who is alert and oriented x4 No S/S of distress/SOB or pain. Bed is low, locked with 2x side rails up. Call light is within reach. Instructed on POC and to call for assist PRN, will continue to monitor for changes Q1hr and PRN.
[2020-02-08] MEDS ORDERED: INSULIN LANTUS (GLARGINE) 1 /0.01ml (100units/ml) SC SCH (10:27)
[2020-02-08] MEDS ORDERED: hydrALAZINE HCL 20 MG/ML VL IV ONE (10:30)
[2020-02-08] MEDS: CINACALCET HYDROCHLORIDE 30 MG TAB PO SCH (10:56)
--- NOTE | 2020-02-08 11:20 | NUR ---
Respiratory Culture Patient aware of need for sputum collection. Supplies are at bedside. Patient verbalized understanding. Will continue to monitor.
[2020-02-08 11:38] LABS: Urine Bacteria NONE SEEN /hpf (None Seen); Urine Blood Negative /uL (Negative); Urine Specific Gravity 1.011 (1.001-1.035); Urine WBC 13 /hpf (0 - 3)
[2020-02-08] MEDS: ALBUTEROL SULF 2.5 MG/0.5ML(0.5%) NEB SOLN NEB SCH ×2 (11:42→18:32)
[2020-02-08] MEDS: INSULIN LANTUS (GLARGINE) 1 /0.01ml (100units/ml) SC SCH ×2 (11:43→22:00)
[2020-02-08] MEDS: ACCU-CHEK COMFORT CURVE STRIP VI SCH ×3 (11:43→22:42)
[2020-02-08] MEDS: InsuLIN REG 1unit/0.01ml Soln (100units/ml) SC SCH ×3 (11:43→22:00)
--- NOTE | 2020-02-08 13:10 | NUR ---
MRSA Mrsa swab collected and sent to lab. Will continue to monitor.
[2020-02-08] MEDS: SODIUM CHLOR 0.9% PF (SALINE LOCK) 10ML VIAL/SYR IV SCH ×2 (13:28→22:00)
[2020-02-08] MEDS: SEVELAMER 800 MG TAB PO SCH ×2 (13:28→22:00)
--- NOTE | 2020-02-08 15:21 | NUR ---
Isrrael Wan, dialysis nurse this patient is not on schedule to receive hemodialysis today. Paging Dr. Connor as nephrology consult was called in with this MD. Waiting for call back.
--- NOTE | 2020-02-08 15:31 | NUR ---
Received call back Per Dr. Connor, Dr. Garcia needs to be consulted. Will add new consult and graphics editor to call in consult with Dr. Garcia. Will continue to monitor.
[2020-02-08] MEDS ORDERED: SODIUM CHL 0.9% 1000 ML BAG XX ONE (15:45)
--- NOTE | 2020-02-08 16:14 | NUR ---
Called [facility] Regarding this patient receiving hemodialysis today. Per machine veneer repairer Vandana, she will page the acute nurse and they will let me know if patient will be able to be seen for dialysis today. Waiting for call back.
--- NOTE | 2020-02-08 17:23 | NUR ---
Dialysis nurse At bedside.
[2020-02-08] MEDS: CARVEDILOL 12.5 MG TAB PO SCH (18:00)
[2020-02-08] MEDS: FUROSEMIDE 40 MG/4 ML VIAL IV SCH (18:00)
--- NOTE | 2020-02-08 18:34 | NUR ---
RT NOTE PT WAS SEEN BY RT FOR HHN TX. PT IS CURRENTLY ON DIALYSIS AND REQUESTS TO WAIT UNTIL NEXT SCHEDULED TIME. HR 81, RR 16, BS CLEAR, POX 99% ON ROOM AIR. NO SOB OR DISTRESS NOTED. PT AWARE TO CALL IF TX NEEDED BEFORE NEXT SCHEDULED TIME. DIALYSIS NURSE AT BEDSIDE. CONT ORDERED Addendum: 02/08/20 at 1845 by Loreto Solomon RT Amended: Links added.
--- NOTE | 2020-02-08 19:40 | NUR ---
Opening Shift Note Assumed care of patient, awake, AAOx4. No S/S of distress/SOB or pain. Patient received dialysis 2L for 2hrs. On room air and ambulatory. Bed in lowest locked position, side rails up x2, call light within reach. Instructed on POC and to call for assist PRN, will continue to monitor for changes Q1hr and PRN.
[2020-02-08] MEDS ORDERED: EPOETIN ALFA 10,000 UNIT/1 ML VIAL SC ONE (21:00)
[2020-02-08] MEDS ORDERED: QUEtiapine FUMARATE 25 MG TAB PO SCH (22:00)
[2020-02-08] MEDS ORDERED: ATORVASTATIN 20 MG TAB PO SCH ×2 (22:00)
--- NOTE | 2020-02-09 00:20 | NUR ---
RT NOTE PT WAS SEEN BY RT FOR HHN TX. PT WAS SLEEPING BUT EASILY AWAKENED. HR 80, RR 16, BS CLEAR, POX 100% ON ROOM AIR. PT STATES HE WANTS TO WAIT UNTIL MORNING FOR TX. NO SOB OR DISTRESS NOTED PAT HIDALGO NOTIFIED AND WILL CALL IF NEEDED BEFORE NEXT ROUNDS Addendum: 02/09/20 at 0029 by Loreto Solomon RT Amended: Links added.
[2020-02-09 05:00] VITALS: BP 143/63
[2020-02-09] MEDS: SODIUM CHLOR 0.9% PF (SALINE LOCK) 10ML VIAL/SYR IV SCH (06:00)
[2020-02-09] MEDS: SEVELAMER 800 MG TAB PO SCH (06:00)
[2020-02-09] MEDS: FUROSEMIDE 40 MG/4 ML VIAL IV SCH (06:00)
[2020-02-09 06:08] LABS: Basophils # (auto) 0.1 10 ^3/uL (0-0.2); Basophils % (auto) 1.1 % (0.0-2.0); Eosinophils # (auto) 0.2 10 ^3/uL (0-0.8); Eosinophils % (auto) 2.7 % (0.0-7.0); Hemoglobin 8.6 g/dL (13.5-17.5); Lymphocytes # (auto) 2.1 10 ^3/uL (0.4-5.4); Lymphocytes % (auto) 37.4 % (10.0-50.0); Mean Corpuscular Hemoglobin 30.9 pg (28.0-32.0); Mean Corpuscular Hgb Conc. 33.2 g/dL (32.0-36.0); Monocytes # (auto) 0.7 10 ^3/uL (0-1.3); Monocytes % (auto) 12.3 % (0.0-12.0); Neutrophils # (auto) 2.6 10 ^3/uL (1.6-8.6); Neutrophils % (auto) 46.5 % (37.0-80.0); Nucleated Red Blood Cells % 0.1 %; Platelet Count (auto) 212 10^3/uL (140-450); Red Blood Cells 2.79 10^6/uL (4.5-5.90); Red Cell Distribution Width 18.6 % (11.8-14.3); White Blood Cell 5.7 10^3/uL (4.4-10.8)
[2020-02-09] MEDS: ALBUTEROL SULF 2.5 MG/0.5ML(0.5%) NEB SOLN NEB SCH ×3 (06:23→12:00)
[2020-02-09 06:29] LABS: Potassium 4.3 mmol/L (3.5-5.1)
[2020-02-09 06:44] LABS: Albumin 1.9 g/dL (3.4-5.0); BUN/Creatinine Ratio 5.1; Bilirubin, Total 0.7 mg/dL (0.2-1.0); Calcium 7.4 mg/dL (8.5-10.1); Total Protein 9.9 g/dL (6.4-8.2)
[2020-02-09] MEDS: InsuLIN REG 1unit/0.01ml Soln (100units/ml) SC SCH ×2 (06:58→11:46)
[2020-02-09] MEDS: ACCU-CHEK COMFORT CURVE STRIP VI SCH ×2 (06:58→11:46)
--- NOTE | 2020-02-09 07:15 | NUR ---
Opening Shift Note Assumed care of patient, awake and alert. Respirations are even and unlabored. No S/S of distress/SOB or pain. Bed is low, locked with 2x side rails up. Call light is within reach. Instructed on POC and to call for assist PRN, will continue to monitor for changes Q1hr and PRN.
[2020-02-09] MEDS: CARVEDILOL 12.5 MG TAB PO SCH (07:45)
[2020-02-09 09:00] VITALS: BP 165/85
[2020-02-09] MEDS: B-COMPLEX W/ C & FOLIC ACID(NEPHROVITE TAB) PO SCH (09:10)
[2020-02-09] MEDS: CINACALCET HYDROCHLORIDE 30 MG TAB PO SCH (09:10)
[2020-02-09] MEDS: ASPirin 81 mg TAB PO SCH (09:10)
[2020-02-09] MEDS: ENOXAPARIN SOD 30 MG/0.3 ML SYRINGE SC SCH (09:10)
[2020-02-09] MEDS ORDERED: FAMOTIDINE 20 MG TAB PO SCH (10:00)
[2020-02-09] MEDS ORDERED: CLOPIDOGREL BISULFATE 75 MG TAB PO SCH (10:00)
[2020-02-09] MEDS: INSULIN LANTUS (GLARGINE) 1 /0.01ml (100units/ml) SC SCH (10:18)
[2020-02-09] MEDS ORDERED: CLOP75TA28 PO (10:37)
--- NOTE | 2020-02-09 12:19 | NUR ---
Respiratory note: PT REFUSED MEDNEB TX. NO RESPIRATORY DISTRESS NOTED. PT MADE AWARE TO PUSH CALL BUTTON IF PRN MEDNEB TX NEEDED. SPO2 96% ON RA, HR 84, RR 18, BS CLEAR DIMINISHED.
[2020-02-09 12:36] VITALS: BP 154/84
--- NOTE | 2020-02-09 13:47 | NUR ---
Discharge instructions given as ordered. Encourage to follow up with PMD as instructed. Emphasized the importance of patient calling and scheduling appointment with Dr. Rocha. All questions and concerns addressed. Patient verbalized understanding. IV removed with catheter intact, pressure dressing applied. Telemetry unit returned to ICU. Patient taken to vehicle via wheelchair with all personal belongings, accompanied by staff. No distress noted at time of departure. Addendum: 02/09/20 at 1357 by Vandana Tilley RN RN This nurse educated patient on the importance of fluid restrictions, following a renal diet, managing blood sugars. Patient verbalized understanding. This nurse also followed up with Samuel Cabrera and patient will be contacted by a [employer] vest personnel representative for fitting of vest. Patient aware and verbalized understanding.
[2020-03-06] MEDS ORDERED: PANT40TA2 PO (12:04)
[2020-03-06] MEDS ORDERED: SUCR1TAB22 PO (12:04)
[2020-03-06] MEDS ORDERED: FURO1TAB33 PO (12:04)
[2020-03-10] MEDS ORDERED: FAMO20TA10 PO (15:42)
== END 2020-02-09 13:46 | disposition home or self-care (01) | DRG 194 ==
LOC: ER 06:45 → EDBD 06:45 → TELE 06:46 → TELE-CENTR 10:13
PROVIDERS: ADMIT Internal Medicine; ATTEND Internal Medicine
PROC: 5A1D70Z Performance of Urinary Filtration, Intermittent, Less than 6 Hours Per Day (ICD-10-PCS; principal; 2020-02-08)
DX: I13.2 Hypertensive heart and chronic kidney disease with heart failure and with stage 5 chronic kidney disease, or end stage renal disease (principal); I21.A1 Myocardial infarction type 2; J96.00 Acute respiratory failure, unspecified whether with hypoxia or hypercapnia; E43 Unspecified severe protein-calorie malnutrition; I50.43 Acute on chronic combined systolic (congestive) and diastolic (congestive) heart failure; I16.1 Hypertensive emergency; N18.6 End stage renal disease; E87.5 Hyperkalemia; D63.1 Anemia in chronic kidney disease; E11.65 Type 2 diabetes mellitus with hyperglycemia; J44.9 Chronic obstructive pulmonary disease, unspecified; I25.5 Ischemic cardiomyopathy; I25.10 Atherosclerotic heart disease of native coronary artery without angina pectoris; E11.21 Type 2 diabetes mellitus with diabetic nephropathy; F20.0 Paranoid schizophrenia; K21.9 Gastro-esophageal reflux disease without esophagitis; J91.8 Pleural effusion in other conditions classified elsewhere; E87.1 Hypo-osmolality and hyponatremia; Z99.2 Dependence on renal dialysis; Z79.4 Long term (current) use of insulin; Z95.5 Presence of coronary angioplasty implant and graft; I25.2 Old myocardial infarction; Z68.25 Body mass index [BMI] 25.0-25.9, adult
CPT/HCPCS: 36415; 71045; 76705; 80053; 80307; 81001; 82550; 82962; 83036; 83880; 84484; 85025; 85610; 85730; 87081; 90935; 93005; 94640; 96365; 96375; 99291; G0378; J0885; J1642; J1815; J3490

== ENCOUNTER 2020-02-12 23:18 | Inpatient (IN) | payer MEDICAID ==
[~2020-02-12] VITALS: Ht 180.3 cm; Wt 72.8 kg
[~2020-02-12 23:18] MED LIST changes: +CLOP75TA28 PO
[2020-02-12 23:51] LABS: Basophils # (auto) 0.1 10 ^3/uL (0-0.2); Eosinophils # (auto) 0.2 10 ^3/uL (0-0.8); Hemoglobin 8.4 g/dL (13.5-17.5); Lymphocytes # (auto) 1.8 10 ^3/uL (0.4-5.4); Mean Corpuscular Hemoglobin 31.2 pg (28.0-32.0); Mean Corpuscular Hgb Conc. 33.5 g/dL (32.0-36.0); Mean Corpuscular Volume 93.2 fL (80.0-100.0); Monocytes # (auto) 0.7 10 ^3/uL (0-1.3); Monocytes % (auto) 13.6 % (0.0-12.0); Neutrophils # (auto) 2.4 10 ^3/uL (1.6-8.6); Neutrophils % (auto) 46.4 % (37.0-80.0); Nucleated Red Blood Cells % 0.1 %; Platelet Count (auto) 168 10^3/uL (140-450); Red Blood Cells 2.68 10^6/uL (4.5-5.90); White Blood Cell 5.1 10^3/uL (4.4-10.8)
[2020-02-13 00:06] LABS: INR 1.13 (0.9-1.15); Partial Thromboplastin Time 28.9 sec (23.64-32.05)
[2020-02-13 00:12] LABS: Calcium 7.3 mg/dL (8.5-10.1); Magnesium 2.4 mg/dL (1.6-2.6); Potassium 4.5 mmol/L (3.5-5.1)
[2020-02-13 00:14] LABS: BUN/Creatinine Ratio 4.6
[2020-02-13 00:19] LABS: Bilirubin, Total 0.3 mg/dL (0.2-1.0)
[2020-02-13 01:17] LABS: CRP High Sensitivity 0.18 mg/dL (< 0.3)
[2020-02-13] MEDS ORDERED: FUROSEMIDE 40 MG/4 ML VIAL IV ONE (01:45)
[2020-02-13 02:51] LABS: Urine Bacteria FEW /hpf (None Seen); Urine Blood TRACE /uL (Negative); Urine Hyaline Cast FEW /lpf (0 - 2); Urine Specific Gravity 1.005 (1.001-1.035); Urine WBC 3 /hpf (0 - 3)
[2020-02-13] MEDS ORDERED: SODIUM CHLORIDE 0.9% 1,000 ML IV SCH (03:57)
[2020-02-13] MEDS ORDERED: ONDANSETRON HCL 4 MG/2 ML VIAL IV PRN (04:00)
[2020-02-13] MEDS ORDERED: DOCUSATE SOD 100 MG CAP PO PRN (04:00)
[2020-02-13] MEDS ORDERED: MORPHINE SULF INJ 2 MG/ML SYRINGE 1ML IV PRN ×2 (04:00)
[2020-02-13] MEDS ORDERED: NITROGLYCERIN 0.4 MG SL TAB SL PRN (04:00)
[2020-02-13] MEDS ORDERED: ACETAMINOPHEN 325 MG TAB PO PRN (04:00)
[2020-02-13] MEDS ORDERED: ACETAMINOPHEN 500 MG TAB PO PRN (04:00)
[2020-02-13] MEDS ORDERED: HYDROcodone-ACET 5/325MG TAB PO PRN (04:00)
[2020-02-13] MEDS ORDERED: DEXTROSE (50%) 50ML SYRG IV PRN (04:00)
[2020-02-13 04:25] VITALS: BP 164/89
[2020-02-13] MEDS: InsuLIN REG 1unit/0.01ml Soln (100units/ml) SC SCH ×6 (04:47→23:58)
[2020-02-13] MEDS: ACCU-CHEK COMFORT CURVE STRIP VI SCH ×6 (04:47→23:58)
[2020-02-13] MEDS ORDERED: ALBUTEROL SULF HFA 90MCG INH 200DOSE IN SCH (06:00)
[2020-02-13] MEDS: SEVELAMER 800 MG TAB PO SCH ×3 (07:25→17:58)
[2020-02-13 09:00] VITALS: BP 163/95
[2020-02-13] MEDS: CHOLECALCIFEROL (VITD3) 1,000IU=25mCg TAB PO SCH (09:53)
[2020-02-13] MEDS: ENOXAPARIN SOD 30 MG/0.3 ML SYRINGE SC SCH (09:55)
[2020-02-13] MEDS: diphenhdrAMINE HCL 25 MG CAP PO SCH (09:58)
[2020-02-13] MEDS ORDERED: METHOCARBAMOL PO SCH (10:00)
[2020-02-13] MEDS ORDERED: ASCORBIC ACID 1,000 MG TAB PO SCH (10:00)
[2020-02-13] MEDS ORDERED: CLOPIDOGREL BISULFATE 75 MG TAB PO SCH (10:00)
[2020-02-13] MEDS ORDERED: DOXYCYCLINE 100MG/250ML 250 ML IV SCH (10:00)
[2020-02-13] MEDS ORDERED: PATIENTS OWN MEDICATION (Simvastatin 10 MG) PO SCH (10:00)
[2020-02-13] MEDS ORDERED: ZINC SULFATE 220mg CAP or TAB PO SCH (10:00)
[2020-02-13] MEDS: DOXYCYCLINE 100 MG TAB/CAP PO SCH ×2 (10:48→21:55)
[2020-02-13] MEDS ORDERED: ASPirin 81 mg TAB PO ONE (11:15)
[2020-02-13] MEDS ORDERED: CLOPIDOGREL BISULFATE 75 MG TAB PO ONE (11:15)
[2020-02-13] MEDS: B-COMPLEX W/ C & FOLIC ACID(NEPHROVITE TAB) PO SCH (11:48)
[2020-02-13] MEDS: METHOCARBAMOL 500 MG TAB PO SCH ×2 (11:48→21:55)
[2020-02-13 11:52] VITALS: BP 151/88
[2020-02-13] MEDS: CARVEDILOL 12.5 MG TAB PO SCH ×2 (11:54→21:55)
[2020-02-13 16:41] VITALS: BP 133/74
[2020-02-13] MEDS ORDERED: QUEtiapine FUMARATE 25 MG TAB PO SCH (18:00)
[2020-02-13] MEDS: IPRATROPIUM BROM 0.5 MG/2.5ML INH SOL NEB PRN (18:33)
[2020-02-13] MEDS: ALBUTEROL SULF 2.5 MG/0.5ML(0.5%) NEB SOLN NEB PRN (18:33)
[2020-02-13 22:00] VITALS: BP 152/81
[2020-02-13] MEDS ORDERED: PRAVASTATIN SODIUM 20 MG TAB PO SCH (22:00)
[2020-02-14] MEDS: ALBUTEROL SULF 2.5 MG/0.5ML(0.5%) NEB SOLN NEB PRN (00:36)
[2020-02-14] MEDS: IPRATROPIUM BROM 0.5 MG/2.5ML INH SOL NEB PRN (00:36)
[2020-02-14] MEDS: InsuLIN REG 1unit/0.01ml Soln (100units/ml) SC SCH ×3 (04:00→13:58)
[2020-02-14] MEDS: ACCU-CHEK COMFORT CURVE STRIP VI SCH ×3 (04:08→13:58)
[2020-02-14 05:00] VITALS: BP 136/67
[2020-02-14 05:51] LABS: Basophils # (auto) 0.1 10 ^3/uL (0-0.2); Basophils % (auto) 1.2 % (0.0-2.0); Eosinophils # (auto) 0.2 10 ^3/uL (0-0.8); Hematocrit 26.3 % (41.0-53.0); Hemoglobin 8.9 g/dL (13.5-17.5); Lymphocytes # (auto) 1.6 10 ^3/uL (0.4-5.4); Lymphocytes % (auto) 33.8 % (10.0-50.0); Mean Corpuscular Hemoglobin 31.6 pg (28.0-32.0); Mean Corpuscular Hgb Conc. 33.7 g/dL (32.0-36.0); Mean Corpuscular Volume 93.5 fL (80.0-100.0); Monocytes # (auto) 0.6 10 ^3/uL (0-1.3); Neutrophils # (auto) 2.4 10 ^3/uL (1.6-8.6); Platelet Count (auto) 176 10^3/uL (140-450); Red Blood Cells 2.81 10^6/uL (4.5-5.90); Red Cell Distribution Width 18.3 % (11.8-14.3); White Blood Cell 4.8 10^3/uL (4.4-10.8)
[2020-02-14 06:01] LABS: % Iron Saturation 41.6 % (20-55)
[2020-02-14 06:08] LABS: Albumin 2.1 g/dL (3.4-5.0); BUN/Creatinine Ratio 6.4; Bilirubin, Total 0.4 mg/dL (0.2-1.0); Calcium 7.2 mg/dL (8.5-10.1); Magnesium 2.8 mg/dL (1.6-2.6); Total Protein 10.1 g/dL (6.4-8.2)
[2020-02-14] MEDS ORDERED: SODIUM CHL 0.9% 1000 ML BAG XX ONE (07:00)
[2020-02-14 09:00] VITALS: BP 142/71
[2020-02-14] MEDS ORDERED: CLOPIDOGREL BISULFATE 75 MG TAB PO SCH (10:00)
[2020-02-14] MEDS ORDERED: ASPirin 81 mg TAB PO SCH (10:00)
[2020-02-14] MEDS: CHOLECALCIFEROL (VITD3) 1,000IU=25mCg TAB PO SCH (10:00)
[2020-02-14 10:54] VITALS: BP 136/67
[2020-02-14] MEDS: SEVELAMER 800 MG TAB PO SCH ×2 (13:15→13:57)
[2020-02-14] MEDS: diphenhdrAMINE HCL 25 MG CAP PO SCH (13:55)
[2020-02-14] MEDS: B-COMPLEX W/ C & FOLIC ACID(NEPHROVITE TAB) PO SCH (13:55)
[2020-02-14] MEDS: METHOCARBAMOL 500 MG TAB PO SCH (13:56)
[2020-02-14] MEDS: CARVEDILOL 12.5 MG TAB PO SCH (13:56)
[2020-02-14] MEDS: ENOXAPARIN SOD 30 MG/0.3 ML SYRINGE SC SCH (13:57)
[2020-02-14] MEDS: DOXYCYCLINE 100 MG TAB/CAP PO SCH (13:57)
[2020-02-14] MEDS ORDERED: EPOETIN ALFA 10,000 UNIT/1 ML VIAL SC ONE (21:00)
[2020-03-06] MEDS ORDERED: FURO1TAB33 PO (12:04)
[2020-03-06] MEDS ORDERED: PANT40TA2 PO (12:04)
[2020-03-06] MEDS ORDERED: SUCR1TAB38 PO (12:04)
== END 2020-02-14 14:00 | disposition home or self-care (01) | DRG 194 ==
LOC: EDBD 23:18 → ER 23:25 → TELE 23:26 → TELE-E-ADS 02-13 09:13 → TELE-CENTR 02-13 15:53
PROVIDERS: ADMIT Hospitalist; ATTEND Internal Medicine
PROC: 5A1D70Z Performance of Urinary Filtration, Intermittent, Less than 6 Hours Per Day (ICD-10-PCS; principal; 2020-02-14)
DX: I13.2 Hypertensive heart and chronic kidney disease with heart failure and with stage 5 chronic kidney disease, or end stage renal disease (principal); I21.A1 Myocardial infarction type 2; J96.00 Acute respiratory failure, unspecified whether with hypoxia or hypercapnia; E43 Unspecified severe protein-calorie malnutrition; I50.43 Acute on chronic combined systolic (congestive) and diastolic (congestive) heart failure; I42.9 Cardiomyopathy, unspecified; N18.6 End stage renal disease; E11.22 Type 2 diabetes mellitus with diabetic chronic kidney disease; J44.9 Chronic obstructive pulmonary disease, unspecified; I25.10 Atherosclerotic heart disease of native coronary artery without angina pectoris; E03.9 Hypothyroidism, unspecified; K21.9 Gastro-esophageal reflux disease without esophagitis; D63.8 Anemia in other chronic diseases classified elsewhere; D63.1 Anemia in chronic kidney disease; Z95.5 Presence of coronary angioplasty implant and graft; Z99.2 Dependence on renal dialysis; Z79.4 Long term (current) use of insulin; Z20.828 Contact with and (suspected) exposure to other viral communicable diseases; J10.1 Influenza due to other identified influenza virus with other respiratory manifestations
CPT/HCPCS: 36415; 71045; 80053; 81001; 82728; 82962; 83036; 83540; 83550; 83605; 83615; 83735; 83880; 84443; 84484; 85025; 85379; 85610; 85730; 86141; 87070; 87081; 87804; 87880; 90935; 93005; 94640; 96361; 96374; G0378; J1642; J1815

== ENCOUNTER → 2020-02-26 | Emergency (ER) | payer MEDICAID ==
[~2020-02-26] VITALS: Ht 180.3 cm; Wt 74.8 kg
[~2020-02-26] MED LIST changes: +ASPI81CH43 PO; +CAR125T PO; +CARV6.2551 PO; +DIP25C PO; +FAM20T PO; +FURO1TAB31 PO; +FURO1TAB33 PO; +HYDR-2691 PO; +IBUPROFEN 800 MG TAB PO ONE; +INSLANTI SC; +INSU100I49 SC; +INSU100I51 SC; +ISO60SRT PO; +NEPVITT PO; +PANT40T PO; +PANT40TA2 PO; +PRAV20TA3 PO; +QUET100T46 PO; +QUET300T23 PO; +SEVE800T PO; +SUCR1TAB PO; +SUCR1TAB38 PO
[2020-02-26 22:57] LABS: Basophils # (auto) 0.1 10 ^3/uL (0-0.2); Basophils % (auto) 1.4 % (0.0-2.0); Eosinophils # (auto) 0.1 10 ^3/uL (0-0.8); Eosinophils % (auto) 2.6 % (0.0-7.0); Hematocrit 25.2 % (41.0-53.0); Hemoglobin 8.2 g/dL (13.5-17.5); Lymphocytes # (auto) 1.7 10 ^3/uL (0.4-5.4); Lymphocytes % (auto) 35.8 % (10.0-50.0); Mean Corpuscular Hemoglobin 31.1 pg (28.0-32.0); Mean Corpuscular Hgb Conc. 32.7 g/dL (32.0-36.0); Mean Corpuscular Volume 95.1 fL (80.0-100.0); Monocytes # (auto) 0.5 10 ^3/uL (0-1.3); Monocytes % (auto) 9.6 % (0.0-12.0); Neutrophils # (auto) 2.4 10 ^3/uL (1.6-8.6); Neutrophils % (auto) 50.6 % (37.0-80.0); Nucleated Red Blood Cells % 0.1 %; Platelet Count (auto) 196 10^3/uL (140-450); Red Blood Cells 2.65 10^6/uL (4.5-5.90); Red Cell Distribution Width 18.7 % (11.8-14.3); White Blood Cell 4.8 10^3/uL (4.4-10.8)
[2020-02-26 23:06] LABS: INR 1.13 (0.9-1.15); Partial Thromboplastin Time 29.1 sec (23.64-32.05)
[2020-02-26 23:13] LABS: BUN/Creatinine Ratio 4.7; Magnesium 2.5 mg/dL (1.6-2.6); Potassium 3.9 mmol/L (3.5-5.1)
[2020-02-26 23:18] LABS: Bilirubin, Total 0.3 mg/dL (0.2-1.0)
[2020-02-27 05:11] VITALS: BP 150/62
== END | disposition home or self-care (01) ==
LOC: EDUNIT# 22:02 → EDBD 22:12 → ER 22:17
DX: I13.2 Hypertensive heart and chronic kidney disease with heart failure and with stage 5 chronic kidney disease, or end stage renal disease (principal); E11.22 Type 2 diabetes mellitus with diabetic chronic kidney disease; N18.6 End stage renal disease; I50.9 Heart failure, unspecified; Z99.2 Dependence on renal dialysis; R79.89 Other specified abnormal findings of blood chemistry; I25.10 Atherosclerotic heart disease of native coronary artery without angina pectoris; J44.9 Chronic obstructive pulmonary disease, unspecified
CPT/HCPCS: 36415; 71045; 80053; 82010; 82962; 83735; 83880; 84484; 85025; 85610; 85730; 93005

== ENCOUNTER 2020-03-03 14:20 | Inpatient (IN) | payer MEDICAID ==
[~2020-03-03] VITALS: Ht 180.3 cm; Wt 79.0 kg
--- NOTE | 2020-03-03 01:18 | NUR ---
Telemetry admit from [facility] admitted to Telemetry unit after SBAR received. Patient oriented to Ric matta RN, unit, room, bed, and unit policies regarding patient care and visiting hours. Patient now on continuous telemetry monitoring, tele box # 56 and telemetry reading on arrival to unit is NSR . Patient placed on bedside oxygen, weighed by bedscale and encouraged to call if they need something. All questions and concerns addressed, patient verbalized understanding. Addendum: 03/04/20 at 0208 by Ric Wright RN Wrong time Admission was on 03/03/20 at 2047
[~2020-03-03 14:20] MED LIST changes: -ASPI81CH43 PO; -CAR125T PO; -CARV6.2551 PO; -DIP25C PO; -FAM20T PO; -FURO1TAB31 PO; -FURO1TAB33 PO; -HYDR-2691 PO; -IBUPROFEN 800 MG TAB PO ONE; -INSLANTI SC; -INSU100I49 SC; -INSU100I51 SC; -ISO60SRT PO; -NEPVITT PO; -PANT40T PO; -PANT40TA2 PO; -PRAV20TA3 PO; -QUET100T46 PO; -QUET300T23 PO; -SEVE800T PO; -SUCR1TAB PO; -SUCR1TAB38 PO
[2020-03-03 15:55] LABS: Basophils # (auto) 0 10 ^3/uL (0-0.2); Basophils % (auto) 0.6 % (0.0-2.0); Eosinophils # (auto) 0 10 ^3/uL (0-0.8); Eosinophils % (auto) 0.4 % (0.0-7.0); Hematocrit 25.6 % (41.0-53.0); Hemoglobin 8.7 g/dL (13.5-17.5); Lymphocytes # (auto) 1.2 10 ^3/uL (0.4-5.4); Lymphocytes % (auto) 15.9 % (10.0-50.0); Mean Corpuscular Hemoglobin 32.3 pg (28.0-32.0); Mean Corpuscular Volume 95.1 fL (80.0-100.0); Monocytes # (auto) 0.7 10 ^3/uL (0-1.3); Monocytes % (auto) 9.7 % (0.0-12.0); Neutrophils # (auto) 5.7 10 ^3/uL (1.6-8.6); Neutrophils % (auto) 73.4 % (37.0-80.0); Platelet Count (auto) 208 10^3/uL (140-450); Red Blood Cells 2.69 10^6/uL (4.5-5.90); Red Cell Distribution Width 19.8 % (11.8-14.3); White Blood Cell 7.7 10^3/uL (4.4-10.8)
[2020-03-03 16:13] LABS: Albumin 2.2 g/dL (3.4-5.0); Calcium 7.3 mg/dL (8.5-10.1); Magnesium 2.3 mg/dL (1.6-2.6)
[2020-03-03 16:17] LABS: BUN/Creatinine Ratio 4.7; Bilirubin, Total 0.4 mg/dL (0.2-1.0); INR 1.08 (0.9-1.15); Partial Thromboplastin Time 27.6 sec (23.64-32.05)
[2020-03-03] MEDS ORDERED: MORPHINE SULF INJ 2 MG/ML SYRINGE 1ML IV PRN (18:15)
[2020-03-03] MEDS ORDERED: NITROGLYCERIN 0.4 MG SL TAB SL PRN (18:15)
[2020-03-03 18:39] LABS: Urine Bacteria NONE SEEN /hpf (None Seen); Urine Blood Negative /uL (Negative); Urine Hyaline Cast FEW /lpf (0 - 2); Urine Specific Gravity 1.014 (1.001-1.035); Urine Sperm PRESENT /hpf (None Seen); Urine WBC 6 /hpf (0 - 3)
[2020-03-03] MEDS ORDERED: TEMAZEPAM 15 MG CAP PO PRN (18:45)
[2020-03-03] MEDS ORDERED: DEXTROSE (50%) 50ML SYRG IV PRN (18:45)
[2020-03-03] MEDS ORDERED: ALBUTEROL SULF 2.5 MG/0.5ML(0.5%) NEB SOLN NEB PRN (18:45)
[2020-03-03] MEDS ORDERED: PROMETHAZINE HCL 25 MG/ML 1ML IV PRN (18:45)
[2020-03-03] MEDS ORDERED: traMADol HCL 50 MG TAB PO PRN (18:45)
[2020-03-03] MEDS: cefTRIAXone 1GM/50ML D5W 50 ML IV SCH (19:00)
[2020-03-03 20:11] LABS: Alcohol, Urine < 3.0 mg/dL (0-10); Amphetamine Screen, Urine NEGATIVE (NEGATIVE); Barbiturate Scree,Urine NEGATIVE (NEGATIVE); Benzodiazephine Screen, Urine NEGATIVE (NEGATIVE); Cannabinoid Screen, Urine NEGATIVE (NEGATIVE); Cocaine Screen, Urine NEGATIVE (NEGATIVE); Opiate Scree,Urine NEGATIVE (NEGATIVE); Phencyclidine Screen, Urine NEGATIVE (NEGATIVE)
[2020-03-03 20:47] VITALS: BP 152/89
[2020-03-03 21:50] VITALS: BP 152/89
[2020-03-03] MEDS ORDERED: FAMOTIDINE 20 MG TAB PO SCH (22:00)
[2020-03-03] MEDS: InsuLIN REG 1unit/0.01ml Soln (100units/ml) SC SCH (22:00)
[2020-03-03] MEDS: ALBUTEROL SULF 2.5 MG/0.5ML(0.5%) NEB SOLN NEB SCH (22:21)
[2020-03-03] MEDS: IPRATROPIUM BROM 0.5 MG/2.5ML INH SOL NEB SCH (22:22)
[2020-03-03] MEDS: CARVEDILOL 12.5 MG TAB PO SCH (22:38)
[2020-03-03] MEDS: QUEtiapine FUMARATE 25 MG TAB PO SCH (22:39)
[2020-03-03] MEDS: PRAVASTATIN SODIUM 20 MG TAB PO SCH (22:39)
[2020-03-03] MEDS: SEVELAMER 800 MG TAB PO SCH (22:39)
[2020-03-03] MEDS: ACCU-CHEK COMFORT CURVE STRIP VI SCH (22:54)
--- NOTE | 2020-03-03 22:55 | NUR ---
Blood sugar 450. 10 units regular sc given and paged the hospitalist.
[2020-03-03] MEDS: INSULIN LANTUS (GLARGINE) 1 /0.01ml (100units/ml) SC SCH (23:00)
[2020-03-04 01:24] VITALS: BP 152/89
--- NOTE | 2020-03-04 02:47 | NUR ---
2300 Call from hospitalist. No new orders received Just continue to monitor and recheck.
[2020-03-04 05:00] VITALS: BP 133/67
[2020-03-04 06:28] LABS: Basophils # (auto) 0 10 ^3/uL (0-0.2); Basophils % (auto) 0.8 % (0.0-2.0); Eosinophils # (auto) 0.1 10 ^3/uL (0-0.8); Eosinophils % (auto) 1.9 % (0.0-7.0); Hematocrit 25.6 % (41.0-53.0); Hemoglobin 8.5 g/dL (13.5-17.5); Lymphocytes % (auto) 30.4 % (10.0-50.0); Mean Corpuscular Hemoglobin 31.8 pg (28.0-32.0); Mean Corpuscular Hgb Conc. 33.2 g/dL (32.0-36.0); Mean Corpuscular Volume 95.7 fL (80.0-100.0); Monocytes # (auto) 0.8 10 ^3/uL (0-1.3); Monocytes % (auto) 12.3 % (0.0-12.0); Neutrophils # (auto) 3.6 10 ^3/uL (1.6-8.6); Neutrophils % (auto) 54.6 % (37.0-80.0); Nucleated Red Blood Cells % 0.1 %; Platelet Count (auto) 207 10^3/uL (140-450); Red Blood Cells 2.67 10^6/uL (4.5-5.90); Red Cell Distribution Width 20.1 % (11.8-14.3); White Blood Cell 6.6 10^3/uL (4.4-10.8)
[2020-03-04] MEDS: SEVELAMER 800 MG TAB PO SCH ×5 (06:53→18:12)
[2020-03-04] MEDS: ACCU-CHEK COMFORT CURVE STRIP VI SCH ×4 (06:53→22:00)
[2020-03-04] MEDS: InsuLIN REG 1unit/0.01ml Soln (100units/ml) SC SCH ×4 (06:54→22:00)
[2020-03-04 06:57] LABS: Potassium 3.8 mmol/L (3.5-5.1)
[2020-03-04 07:07] LABS: Albumin 1.8 g/dL (3.4-5.0); Bilirubin, Total 0.4 mg/dL (0.2-1.0); Calcium 7.4 mg/dL (8.5-10.1); Total Protein 9.3 g/dL (6.4-8.2)
[2020-03-04] MEDS: ALBUTEROL SULF 2.5 MG/0.5ML(0.5%) NEB SOLN NEB SCH ×4 (07:10→19:55)
[2020-03-04] MEDS: IPRATROPIUM BROM 0.5 MG/2.5ML INH SOL NEB SCH ×4 (07:10→19:55)
--- NOTE | 2020-03-04 07:10 | NUR ---
Respiratory note: PT HAVING ECHO DONE AT THIS TIME UNABLE TO DO SCHEDULED MEDNEB TX . PT IN NO RESPIRATORY DISTRESS.
--- NOTE | 2020-03-04 07:30 | NUR ---
Opening Note Assumed patient care from LISS RN.
[2020-03-04 09:00] VITALS: BP 147/81
[2020-03-04] MEDS: CLOPIDOGREL BISULFATE 75 MG TAB PO SCH (10:28)
[2020-03-04] MEDS: CARVEDILOL 12.5 MG TAB PO SCH ×3 (10:28→22:56)
[2020-03-04] MEDS: cefTRIAXone 1GM/50ML D5W 50 ML IV SCH (10:28)
[2020-03-04] MEDS: FUROSEMIDE 40 MG/4 ML VIAL IV SCH (10:28)
[2020-03-04] MEDS: INSULIN LANTUS (GLARGINE) 1 /0.01ml (100units/ml) SC SCH ×2 (11:09→22:00)
--- NOTE | 2020-03-04 11:25 | NUR ---
Patient Off Unit Patient Off unit, at [facility].
--- NOTE | 2020-03-04 11:26 | NUR ---
Respiratory note: PT IS OFF THE UNIT AT THIS TIME, PT IS IN NUC. MED. UNABLE TO DO SCHEDULED MEDNEB TX . RN IS MADE AWARE.
[2020-03-04 12:06] LABS: Phosphorus 5.5 mg/dL (2.5-4.90)
--- NOTE | 2020-03-04 12:10 | NUR ---
Patient Returned to Unit
[2020-03-04 12:50] VITALS: BP 139/70
[2020-03-04] MEDS ORDERED: PANTOPRAZOLE 40 MG TAB PO ONE (13:00)
[2020-03-04] MEDS: CINACALCET HYDROCHLORIDE 30 MG TAB PO SCH (13:05)
--- NOTE | 2020-03-04 15:04 | NUR ---
Radiology Spoke with solar installer technician. Patient to have UGI with gastrografin on 03/05 in AM, patient to be kept NPO after Midnight.
[2020-03-04] MEDS ORDERED: ASPirin 81 mg TAB PO ONE (15:30)
[2020-03-04 17:04] VITALS: BP 126/61
[2020-03-04] MEDS: SUCRALFATE 1 GM/10 ML ORAL SUSP PO SCH ×2 (17:28→22:54)
[2020-03-04] MEDS ORDERED: CARV6.2551 PO (17:58)
[2020-03-04] MEDS ORDERED: QUET300T23 PO (17:58)
[2020-03-04] MEDS ORDERED: INSU100I49 SC (17:58)
--- NOTE | 2020-03-04 19:11 | NUR ---
Closing Note Report given to Ric LEIJA RN. Addendum: 03/04/20 at 1916 by LILIANA KLEIN RN RN Patient currently sitting up in bed, feet dangling. No signs of distress at this time. Respirations are even and unlabored. Safety precautions are in place, patient is AOx4.
--- NOTE | 2020-03-04 19:15 | NUR ---
Opening Shift Note Assumed care of patient, awake and alert. No S/S of distress/SOB or pain. Instructed on POC and to call for assist PRN, will continue to monitor for changes Q1hr and PRN.
--- NOTE | 2020-03-04 19:38 | NUR ---
Respiratory note: CONT POX CHECK. HR 103, RR 18, POX 96% ON 2L NC. NO SOB OR DISTRESS AT THIS TIME.
[2020-03-04 21:49] VITALS: BP 139/81
[2020-03-04] MEDS: QUEtiapine FUMARATE 25 MG TAB PO SCH (22:55)
[2020-03-04] MEDS: PRAVASTATIN SODIUM 20 MG TAB PO SCH (22:56)
[2020-03-04] MEDS: PANTOPRAZOLE 40 MG TAB PO SCH (22:57)
[2020-03-05] MEDS: IPRATROPIUM BROM 0.5 MG/2.5ML INH SOL NEB SCH ×3 (00:08→18:31)
[2020-03-05] MEDS: ALBUTEROL SULF 2.5 MG/0.5ML(0.5%) NEB SOLN NEB SCH ×3 (00:08→18:31)
[2020-03-05 05:00] VITALS: BP 146/77
[2020-03-05 06:03] LABS: Basophils # (auto) 0 10 ^3/uL (0-0.2); Basophils % (auto) 0.8 % (0.0-2.0); Eosinophils # (auto) 0.1 10 ^3/uL (0-0.8); Eosinophils % (auto) 2.1 % (0.0-7.0); Hemoglobin 9.1 g/dL (13.5-17.5); Lymphocytes # (auto) 2.1 10 ^3/uL (0.4-5.4); Lymphocytes % (auto) 37.4 % (10.0-50.0); Mean Corpuscular Hemoglobin 32.2 pg (28.0-32.0); Mean Corpuscular Hgb Conc. 33.6 g/dL (32.0-36.0); Mean Corpuscular Volume 95.7 fL (80.0-100.0); Monocytes # (auto) 0.5 10 ^3/uL (0-1.3); Monocytes % (auto) 8.5 % (0.0-12.0); Neutrophils # (auto) 2.9 10 ^3/uL (1.6-8.6); Neutrophils % (auto) 51.2 % (37.0-80.0); Nucleated Red Blood Cells % 0.1 %; Platelet Count (auto) 217 10^3/uL (140-450); Red Blood Cells 2.82 10^6/uL (4.5-5.90); Red Cell Distribution Width 19.7 % (11.8-14.3); White Blood Cell 5.6 10^3/uL (4.4-10.8)
[2020-03-05 06:23] LABS: BUN/Creatinine Ratio 5.9; Calcium 7.2 mg/dL (8.5-10.1)
[2020-03-05] MEDS: SUCRALFATE 1 GM/10 ML ORAL SUSP PO SCH ×4 (06:49→22:27)
[2020-03-05] MEDS: ACCU-CHEK COMFORT CURVE STRIP VI SCH ×4 (06:49→22:00)
[2020-03-05] MEDS: InsuLIN REG 1unit/0.01ml Soln (100units/ml) SC SCH ×4 (06:50→22:00)
[2020-03-05] MEDS ORDERED: SODIUM CHL 0.9% 1000 ML BAG XX ONE (07:00)
--- NOTE | 2020-03-05 07:30 | NUR ---
Opening Note Assumed patient care from NOC RN, Ric. Patient currently sitting up in bed, feet dangling, no signs of distress at this time. Patient aware and agreeable to NPO status for UGI with Gastrografin today. Safety precautions in place, will continue to monitor.
--- NOTE | 2020-03-05 07:52 | NUR ---
Dialysis Schedule Spoke with public relations representative from [facility] regarding patient's dialysis, patient to have dialysis today with wheel truer, Srinivasa.
--- NOTE | 2020-03-05 08:15 | NUR ---
Refusing UGI Patient currently refusing UGI with gastrografin, patient educated on need and consquence of not following through with treatment, patient verbalized understanding, continues to refuse.
--- NOTE | 2020-03-05 08:22 | NUR ---
Called Radiology Called radiology regarding patient refusing UGI with Gastrografin. Will call back
--- NOTE | 2020-03-05 08:29 | NUR ---
Called Radiology Spoke with Johnson regrading patient refusing UGI with gastrografin.
--- NOTE | 2020-03-05 08:37 | NUR ---
Refusing UGI Patient requesting breakfast tray. Patient re-educated on need for imaging and possible consequences. Informed that if he eats, he will be unable to have procedure today. Patient verbalized understanding, continues to refuse UGI with gastrografin at this time.
[2020-03-05 08:58] VITALS: BP 159/72
[2020-03-05] MEDS: cefTRIAXone 1GM/50ML D5W 50 ML IV SCH (09:45)
--- NOTE | 2020-03-05 09:45 | NUR ---
New IV New IV started on left forearm, 20g. Blood return noted, flushes well. Patient tolerated well, respirations even and unlabored, will continue to monitor. Right AC IV removed due to occlusion, catheter intact, pressure dressing applied.
[2020-03-05] MEDS: SEVELAMER 800 MG TAB PO SCH ×3 (09:46→17:25)
[2020-03-05] MEDS: CINACALCET HYDROCHLORIDE 30 MG TAB PO SCH (10:00)
[2020-03-05] MEDS: PANTOPRAZOLE 40 MG TAB PO SCH ×2 (10:00→22:28)
[2020-03-05] MEDS: FUROSEMIDE 40 MG/4 ML VIAL IV SCH (10:00)
[2020-03-05] MEDS ORDERED: PANTOPRAZOLE 40 MG TAB PO SCH (10:00)
[2020-03-05] MEDS: ASPirin 81 mg TAB PO SCH (10:00)
[2020-03-05] MEDS: CARVEDILOL 12.5 MG TAB PO SCH ×2 (10:00→22:28)
[2020-03-05] MEDS: CLOPIDOGREL BISULFATE 75 MG TAB PO SCH (10:00)
--- NOTE | 2020-03-05 11:06 | NUR ---
Called MD Received return call from Dr. Elina MD aware of patient refusing UGI at this time.
--- NOTE | 2020-03-05 12:00 | NUR ---
Dialysis Traffic Assistant, Srinivasa, at bedside.
[2020-03-05] MEDS: INSULIN LANTUS (GLARGINE) 1 /0.01ml (100units/ml) SC SCH ×2 (12:22→22:00)
[2020-03-05 12:44] VITALS: BP 157/87
--- NOTE | 2020-03-05 14:32 | NUR ---
Dialysis Complete Patient's dialysis treatment complete. No signs of distress at this time, respirations even and unlabored, safety precautions in place will continue to monitor. Addendum: 03/05/20 at 1512 by LILIANA KLEIN RN RN 3.6 liter removed.
[2020-03-05 17:03] VITALS: BP 157/81
[2020-03-05] MEDS ORDERED: EPOETIN ALFA 10,000 UNIT/1 ML VIAL SC ONE (21:00)
[2020-03-05 22:00] VITALS: BP 143/75
[2020-03-05] MEDS: QUEtiapine FUMARATE 25 MG TAB PO SCH (22:27)
[2020-03-05] MEDS: PRAVASTATIN SODIUM 20 MG TAB PO SCH (22:27)
[2020-03-06] MEDS: IPRATROPIUM BROM 0.5 MG/2.5ML INH SOL NEB SCH ×3 (00:38→12:14)
[2020-03-06] MEDS: ALBUTEROL SULF 2.5 MG/0.5ML(0.5%) NEB SOLN NEB SCH ×3 (00:38→12:14)
[2020-03-06 04:50] VITALS: BP 155/71
[2020-03-06] MEDS: InsuLIN REG 1unit/0.01ml Soln (100units/ml) SC SCH ×2 (07:00→11:56)
[2020-03-06] MEDS: SUCRALFATE 1 GM/10 ML ORAL SUSP PO SCH ×2 (07:04→10:51)
[2020-03-06] MEDS: ACCU-CHEK COMFORT CURVE STRIP VI SCH ×2 (07:04→11:40)
--- NOTE | 2020-03-06 07:30 | NUR ---
Opening Note Assumed patient care from NOC RN, Ric. Patient currently sitting up in bed, feet dangling. Respirations even and unlabored, denies pain at this time. Safety precautions in place, patient aware of plan of care. Will continue to monitor.
[2020-03-06] MEDS: SEVELAMER 800 MG TAB PO SCH ×2 (08:21→11:56)
[2020-03-06 08:26] LABS: BUN/Creatinine Ratio 5.7; Calcium 7.2 mg/dL (8.5-10.1); Potassium 3.7 mmol/L (3.5-5.1)
[2020-03-06 08:51] VITALS: BP 147/73
[2020-03-06] MEDS: ASPirin 81 mg TAB PO SCH (09:18)
[2020-03-06] MEDS: FUROSEMIDE 40 MG/4 ML VIAL IV SCH (09:18)
[2020-03-06] MEDS: CARVEDILOL 12.5 MG TAB PO SCH (09:19)
[2020-03-06] MEDS: CLOPIDOGREL BISULFATE 75 MG TAB PO SCH (09:20)
[2020-03-06] MEDS: PANTOPRAZOLE 40 MG TAB PO SCH (09:20)
[2020-03-06] MEDS: INSULIN LANTUS (GLARGINE) 1 /0.01ml (100units/ml) SC SCH (09:21)
--- NOTE | 2020-03-06 10:00 | NUR ---
at Station Dr. Acosta at station. Per MD: Updated patient on plan of care, patient to be discharged today.
[2020-03-06] MEDS ORDERED: PANT40TA2 PO (12:04)
[2020-03-06] MEDS ORDERED: FURO1TAB33 PO (12:04)
[2020-03-06] MEDS ORDERED: SUCR1TAB38 PO (12:04)
[2020-03-06 12:47] VITALS: BP 148/79
[2020-03-06 13:49] VITALS: BP 148/79
--- NOTE | 2020-03-06 15:39 | NUR ---
Called MD Spoke with Dr. Acosta regarding discharge. Per Md, continue with discharge, patient to follow up with dialysis during usual chair time.
--- NOTE | 2020-03-06 15:54 | NUR ---
Information Additional information given to patient for [employer] Life Vest which he received during a previous admission. Patient provided with packet and a demonstration video for additional education. Patient also encouraged to follow manufacture instructions manual and to call number provided if he has any questions. Patient also encouraged to speak with PCP for referral to factory laborer (insurance requires PCP referral) and to speak with MD if he has additional questions regarding vest. Patient AOx4, verbalized understanding.
--- NOTE | 2020-03-06 16:20 | NUR ---
Discharge Discharge instructions given as ordered. Encourage to follow up with PMD as instructed. All questions and concerns addressed. Patient verbalized understanding. Patient notified that prescriptions were sent to preferred pharmacy. IV removed with catheter intact, pressure dressing applied. Telemetry unit returned to ICU. Patient taken to vehicle via wheelchair with all personal belongings, accompanied by staff and family member. No distress noted at time of departure.
[2020-03-07] MEDS ORDERED: SODIUM CHL 0.9% 1000 ML BAG XX ONE (07:00)
[2020-03-07] MEDS ORDERED: EPOETIN ALFA 10,000 UNIT/1 ML VIAL SC ONE (21:00)
== END 2020-03-06 16:20 | disposition home or self-care (01) | DRG 194 ==
LOC: ER 14:20 → EDBD 14:20 → TELE 14:21 → TELE-WESTW 20:48
PROVIDERS: ADMIT Internal Medicine; ATTEND Internal Medicine
PROC: 5A1D70Z Performance of Urinary Filtration, Intermittent, Less than 6 Hours Per Day (ICD-10-PCS; principal; 2020-03-05)
DX: I13.2 Hypertensive heart and chronic kidney disease with heart failure and with stage 5 chronic kidney disease, or end stage renal disease (principal); J96.00 Acute respiratory failure, unspecified whether with hypoxia or hypercapnia; E43 Unspecified severe protein-calorie malnutrition; I50.43 Acute on chronic combined systolic (congestive) and diastolic (congestive) heart failure; E11.22 Type 2 diabetes mellitus with diabetic chronic kidney disease; N18.6 End stage renal disease; I25.10 Atherosclerotic heart disease of native coronary artery without angina pectoris; D63.1 Anemia in chronic kidney disease; K29.70 Gastritis, unspecified, without bleeding; N20.0 Calculus of kidney; E11.65 Type 2 diabetes mellitus with hyperglycemia; E78.5 Hyperlipidemia, unspecified; K21.9 Gastro-esophageal reflux disease without esophagitis; F32.9 Major depressive disorder, single episode, unspecified; E87.1 Hypo-osmolality and hyponatremia; I25.5 Ischemic cardiomyopathy; F20.0 Paranoid schizophrenia; J44.9 Chronic obstructive pulmonary disease, unspecified; Z99.2 Dependence on renal dialysis; Z87.891 Personal history of nicotine dependence; Z95.5 Presence of coronary angioplasty implant and graft; Z79.4 Long term (current) use of insulin; Z68.24 Body mass index [BMI] 24.0-24.9, adult; Z82.49 Family history of ischemic heart disease and other diseases of the circulatory system; Z83.3 Family history of diabetes mellitus
CPT/HCPCS: 36415; 71045; 71046; 74176; 76700; 78306; 80048; 80053; 80307; 81001; 82150; 82306; 82550; 82962; 83036; 83605; 83690; 83735; 83880; 83970; 84100; 84154; 84443; 84484; 84550; 85025; 85610; 85730; 87040; 87081; 90935; 93005; 94640; G0378; J0696; J0885; J1815

== ENCOUNTER 2020-03-07 00:20 | Inpatient (IN) | payer MEDICAID ==
[~2020-03-07] VITALS: Ht 180.3 cm; Wt 68.4 kg
[~2020-03-07 00:20] MED LIST changes: -CARV12.544 PO; +CARV6.2551 PO; +FURO1TAB33 PO; -INSU100I45 IJ; +INSU100I49 SC; +PANT40TA2 PO; -QUET25TA37 PO; +QUET300T23 PO; +SUCR1TAB38 PO
[2020-03-07 02:08] LABS: Basophils # (auto) 0.1 10 ^3/uL (0-0.2); Basophils % (auto) 0.8 % (0.0-2.0); Eosinophils # (auto) 0.1 10 ^3/uL (0-0.8); Eosinophils % (auto) 2.3 % (0.0-7.0); Hematocrit 25.9 % (41.0-53.0); Hemoglobin 8.6 g/dL (13.5-17.5); Mean Corpuscular Hemoglobin 32.1 pg (28.0-32.0); Mean Corpuscular Hgb Conc. 33.3 g/dL (32.0-36.0); Mean Corpuscular Volume 96.4 fL (80.0-100.0); Monocytes # (auto) 0.8 10 ^3/uL (0-1.3); Monocytes % (auto) 11.9 % (0.0-12.0); Neutrophils # (auto) 3.6 10 ^3/uL (1.6-8.6); Nucleated Red Blood Cells % 0.1 %; Platelet Count (auto) 251 10^3/uL (140-450); Red Blood Cells 2.68 10^6/uL (4.5-5.90); Red Cell Distribution Width 19.7 % (11.8-14.3); White Blood Cell 6.5 10^3/uL (4.4-10.8)
[2020-03-07 02:15] LABS: INR 1.07 (0.9-1.15)
[2020-03-07 02:21] LABS: Anion Gap 12 (5-15); BUN/Creatinine Ratio 5.6; Blood Urea Nitrogen 45 mg/dL (7-18); Calcium 7.2 mg/dL (8.5-10.1); Carbon Dioxide 24 mmol/L (21-32); Chloride 94 mmol/L (98-107); GFR African American 9 mL/min; GFR Non-African American 7 mL/min; Glucose 302 mg/dL (74-106); Magnesium 2.6 mg/dL (1.6-2.6); Potassium 3.9 mmol/L (3.5-5.1); Sodium 130 mmol/L (136-145)
[2020-03-07 02:26] LABS: Alanine Aminotransferase 38 U/L (16-61); Alkaline Phosphatase 242 U/L (45-117); Aspartate Aminotransferase 25 U/L (15-37); Bilirubin, Total 0.3 mg/dL (0.2-1.0); Total Protein 9.8 g/dL (6.4-8.2)
[2020-03-07 02:39] LABS: Blood Alcohol < 3.0 mg/dL (0-5)
[2020-03-07 02:44] LABS: Urine Bacteria FEW /hpf (None Seen); Urine Blood TRACE /uL (Negative); Urine Specific Gravity 1.005 (1.001-1.035); Urine WBC 9 /hpf (0 - 3)
[2020-03-07] MEDS ORDERED: ACETAMINOPHEN 325 MG TAB PO ONE (04:30)
[2020-03-07] MEDS ORDERED: FUROSEMIDE 40 MG/4 ML VIAL IV ONE (07:00)
[2020-03-07] MEDS ORDERED: ONDANSETRON HCL 4 MG/2 ML VIAL IV ONE (07:00)
[2020-03-07] MEDS ORDERED: MORPHINE SULFATE 4 MG/ML SYR/VIAL IV ONE (07:00)
[2020-03-07] MEDS ORDERED: NITROGLYCERIN 0.4 MG SL TAB SL PRN (08:45)
[2020-03-07] MEDS ORDERED: MORPHINE SULF INJ 2 MG/ML SYRINGE 1ML IV PRN (08:45)
[2020-03-07] MEDS ORDERED: SODIUM CHL 0.9% 1000 ML BAG XX ONE (10:00)
--- NOTE | 2020-03-07 10:23 | NUR ---
Telemetry admit from [facility] SALCIDO admitted to Telemetry unit after SBAR received. Patient oriented to MARC PATTERSON RN primary RN, [facility] unit, 284 room, B bed, and unit policies regarding patient care and visiting hours. Patient now on continuous telemetry monitoring, tele box # 82. Patient placed on bedside oxygen PRN, weighed by bedscale and encouraged to call if they need something. All questions and concerns addressed, patient verbalized understanding. Note:
[2020-03-07] MEDS ORDERED: LACTULOSE 20Gm/30ML SOLN PO PRN (10:30)
[2020-03-07] MEDS ORDERED: PROMETHAZINE HCL 25 MG/ML 1ML IV PRN (10:30)
[2020-03-07] MEDS ORDERED: traMADol HCL 50 MG TAB PO PRN (10:30)
[2020-03-07] MEDS ORDERED: cefTRIAXone 1GM/50ML D5W 50 ML IV ONE (10:30)
[2020-03-07] MEDS ORDERED: TEMAZEPAM 15 MG CAP PO PRN (10:30)
[2020-03-07 11:47] LABS: Alcohol, Urine < 3.0 mg/dL (0-10); Amphetamine Screen, Urine NEGATIVE (NEGATIVE); Barbiturate Scree,Urine NEGATIVE (NEGATIVE); Benzodiazephine Screen, Urine NEGATIVE (NEGATIVE); Cannabinoid Screen, Urine NEGATIVE (NEGATIVE); Cocaine Screen, Urine NEGATIVE (NEGATIVE); Opiate Scree,Urine NEGATIVE (NEGATIVE); Phencyclidine Screen, Urine NEGATIVE (NEGATIVE)
[2020-03-07] MEDS: QUEtiapine FUMARATE 100 MG TAB PO SCH ×2 (12:30→21:49)
[2020-03-07] MEDS: SUCRALFATE 1 GM TAB PO SCH ×3 (12:30→21:48)
[2020-03-07] MEDS: SEVELAMER 800 MG TAB PO SCH ×2 (14:10→21:49)
[2020-03-07 14:46] VITALS: BP 159/90
[2020-03-07 17:00] VITALS: BP 169/86
--- NOTE | 2020-03-07 19:00 | NUR ---
Opening Shift Note Assumed care of patient, awake and alert. Patient sitting up in his bed at time of assessment. Patient in the lowest possible position with call light within reach. No S/S of distress/SOB or pain. Instructed patient the need for a urine sample. Patient understood and agreed to providing a sample when possible, will continue to check and monitor for urine sample. Instructed on POC and to call for assist PRN, will continue to monitor for changes Q1hr and PRN.
[2020-03-07 20:00] VITALS: BP 158/88
[2020-03-07] MEDS ORDERED: EPOETIN ALFA 10,000 UNIT/1 ML VIAL SC ONE (21:00)
[2020-03-07] MEDS: ACETAMINOPHEN 500 MG TAB PO PRN (21:01)
[2020-03-07] MEDS: CARVEDILOL 3.125 MG TAB PO SCH (21:48)
[2020-03-07] MEDS: FAMOTIDINE 20 MG TAB PO SCH (21:49)
[2020-03-07] MEDS: PANTOPRAZOLE 40 MG TAB PO SCH (21:49)
[2020-03-07 22:00] VITALS: BP 158/88
[2020-03-07] MEDS: INSULIN GLARGINE 20 UNIT SC SCH (22:00)
--- NOTE | 2020-03-07 22:00 | NUR ---
Paged [employer]. Patient has history of diabetes. Patient has own med for Lantus, not in the unit. Paged for new orders as blood sugar was 363. Awaiting call back from [employer].
[2020-03-07] MEDS ORDERED: DEXTROSE (50%) 50ML SYRG IV PRN (22:15)
--- NOTE | 2020-03-07 22:30 | NUR ---
JODIE Guido called back. New orders for accucheck q6h on a mild scale. Will carry out new orders.
[2020-03-07] MEDS: ACCU-CHEK COMFORT CURVE STRIP VI SCH (23:18)
[2020-03-07] MEDS: InsuLIN REG 1unit/0.01ml Soln (100units/ml) SC SCH (23:22)
[2020-03-08 05:00] VITALS: BP 158/82
[2020-03-08 05:28] LABS: Basophils # (auto) 0.1 10 ^3/uL (0-0.2); Basophils % (auto) 0.9 % (0.0-2.0); Eosinophils # (auto) 0.1 10 ^3/uL (0-0.8); Eosinophils % (auto) 2.3 % (0.0-7.0); Hematocrit 27.3 % (41.0-53.0); Hemoglobin 9.1 g/dL (13.5-17.5); Lymphocytes # (auto) 1.5 10 ^3/uL (0.4-5.4); Lymphocytes % (auto) 25.7 % (10.0-50.0); Mean Corpuscular Hemoglobin 31.7 pg (28.0-32.0); Mean Corpuscular Hgb Conc. 33.3 g/dL (32.0-36.0); Mean Corpuscular Volume 95.2 fL (80.0-100.0); Monocytes # (auto) 0.8 10 ^3/uL (0-1.3); Monocytes % (auto) 13.5 % (0.0-12.0); Neutrophils # (auto) 3.4 10 ^3/uL (1.6-8.6); Neutrophils % (auto) 57.6 % (37.0-80.0); Platelet Count (auto) 256 10^3/uL (140-450); Red Blood Cells 2.87 10^6/uL (4.5-5.90); Red Cell Distribution Width 19.7 % (11.8-14.3)
[2020-03-08 05:39] LABS: Potassium 4.1 mmol/L (3.5-5.1)
[2020-03-08] MEDS: ACCU-CHEK COMFORT CURVE STRIP VI SCH ×4 (05:50→23:56)
[2020-03-08] MEDS: SEVELAMER 800 MG TAB PO SCH ×3 (05:50→17:40)
[2020-03-08 05:52] LABS: Albumin 1.9 g/dL (3.4-5.0); BUN/Creatinine Ratio 5.6; Bilirubin, Total 0.2 mg/dL (0.2-1.0); Calcium 7.8 mg/dL (8.5-10.1); Total Protein 9.8 g/dL (6.4-8.2)
[2020-03-08] MEDS: ACETAMINOPHEN 500 MG TAB PO PRN ×2 (06:02→21:02)
[2020-03-08] MEDS: InsuLIN REG 1unit/0.01ml Soln (100units/ml) SC SCH ×4 (06:13→23:56)
[2020-03-08] MEDS: SUCRALFATE 1 GM TAB PO SCH ×4 (06:13→22:07)
[2020-03-08 08:00] VITALS: BP 162/86
[2020-03-08 09:00] VITALS: BP 162/86
[2020-03-08] MEDS ORDERED: cefTRIAXone 1GM/50ML D5W 50 ML IV SCH (09:00)
[2020-03-08] MEDS: INSULIN GLARGINE 20 UNIT SC SCH (10:00)
[2020-03-08] MEDS ORDERED: ZOCOR 10 MG PO SCH (10:00)
[2020-03-08] MEDS ORDERED: NITROGLYCERIN 0.2MG/HR TOPICAL PATCH TD SCH (10:00)
--- NOTE | 2020-03-08 10:15 | NUR ---
PATIENT C/O SOB PLACED PATIENT ON 2L/NC/O2. PATIENT STATED, "I FEEL BETTER". IEJ
[2020-03-08] MEDS: CLOPIDOGREL BISULFATE 75 MG TAB PO SCH (10:26)
[2020-03-08] MEDS: CARVEDILOL 3.125 MG TAB PO SCH (10:26)
[2020-03-08] MEDS: FUROSEMIDE 40 MG/4 ML VIAL IV SCH (10:26)
[2020-03-08] MEDS: ENOXAPARIN SOD 30 MG/0.3 ML SYRINGE SC SCH (10:26)
[2020-03-08] MEDS: PANTOPRAZOLE 40 MG TAB PO SCH ×2 (10:26→22:07)
[2020-03-08] MEDS: ASPirin 81 mg TAB PO SCH (10:26)
[2020-03-08] MEDS: B-COMPLEX W/ C & FOLIC ACID(NEPHROVITE TAB) PO SCH (10:26)
[2020-03-08] MEDS: FAMOTIDINE 20 MG TAB PO SCH (10:26)
[2020-03-08] MEDS: CINACALCET HYDROCHLORIDE 30 MG TAB PO SCH (10:26)
[2020-03-08] MEDS: diphenhdrAMINE HCL 25 MG CAP PO SCH (10:26)
[2020-03-08] MEDS ORDERED: PRAVASTATIN SODIUM 20 MG TAB PO ONE (10:45)
[2020-03-08] MEDS ORDERED: ISOSORBIDE MONONITRATE ER 60 MG TAB PO ONE (12:00)
[2020-03-08 13:00] VITALS: BP 157/89
[2020-03-08] MEDS ORDERED: INSU100I51 SC (13:37)
[2020-03-08] MEDS: INSULIN LANTUS (GLARGINE) 1 /0.01ml (100units/ml) SC SCH ×2 (14:00→22:08)
[2020-03-08] MEDS: hydrALAZINE HCL 25 MG TAB PO SCH ×2 (14:00→22:07)
--- NOTE | 2020-03-08 14:18 | NUR ---
Assessment Patient is a 59-year-old male who is alert and oriented. Prior to admission patient lived home with his roommate Idalia in [facility] and functioned with assistance. Patient informed me he his caregiver Jose Manuel helps him with his ADLs and she goes Wednesday through Wednesday twice a day to his home. Patient informed me he has a nebulizer for home use and would like to see if he qualifies for home oxygen. Informed patient I will inform doctor. Per patient he will return to his prior living arrangements and his roommate or caregiver will transport him home. Advised patient there is a social service consult for SNF vs. home health. Patient informed me he does not want to be placed at a skill nursing facility and he does not want home health stating he gets enough help with his caregiver. Informed patient he has a right to participate in all discharge planning. Patient verbalized understanding and agreed to discharge plan. Informed Dr. Navarro. Addendum: 03/08/20 at 1420 by CHRISTINE CARVALHO Amended: Links added.
--- NOTE | 2020-03-08 15:02 | NUR ---
REPORT GAVE PAT GARZA REPORT. PATIENT RESTING IN BED NO S/S OF DISTRESS. NEW ORDERS IN PLACE STRICT I/O'S.
--- NOTE | 2020-03-08 15:03 | NUR ---
Assumed care of patient. Patient is currently sitting on bed watching TV with even and unlabored respirations, no S/S of distress noted. Bed is locked, in lowest position, side rails up x2, call light with in reach, Will continue to monitor Q1hr and PRN.
[2020-03-08] MEDS: CARVEDILOL 12.5 MG TAB PO SCH (17:45)
--- NOTE | 2020-03-08 19:00 | NUR ---
Opening Shift Note Assumed care of patient, awake and alert. No S/S of distress/SOB or pain. Patient in bed in the lowest possible position with bed rails up x2 and call light within reach. Instructed on POC and to call for assist PRN, will continue to monitor for changes Q1hr and PRN.
[2020-03-08 20:00] VITALS: BP 145/56
[2020-03-08 21:58] VITALS: BP 145/86
[2020-03-08] MEDS: QUEtiapine FUMARATE 100 MG TAB PO SCH (22:08)
--- NOTE | 2020-03-08 23:57 | NUR ---
Patient walked out, stating that he had been discharged. Patient went downstairs with telemetry box and IV in. Security was called to stop and bring the patient up. When talking to the patient he said he thought he had signed the paperwork and that he was okay to go home. Patient came back upstairs escorted with security to turn in his box and take out IV. When talking to the patient about leaving he said he did not know that he had to stay another night, he thought he was okay to go home. Patient agreed to stay the night to be watched and if patient has any further questions or needs to leave, patient was instructed to talk to the RN about the matter. Patient agreed. Will continue to monitor patient. Patient currently back in bed asleep.
[2020-03-09 05:02] VITALS: BP 147/74
[2020-03-09] MEDS: InsuLIN REG 1unit/0.01ml Soln (100units/ml) SC SCH ×3 (06:00→17:43)
[2020-03-09] MEDS: hydrALAZINE HCL 25 MG TAB PO SCH ×3 (06:06→21:39)
[2020-03-09] MEDS: ACCU-CHEK COMFORT CURVE STRIP VI SCH ×3 (06:06→17:43)
[2020-03-09] MEDS: SUCRALFATE 1 GM TAB PO SCH ×4 (06:07→21:36)
[2020-03-09] MEDS: SEVELAMER 800 MG TAB PO SCH ×3 (08:29→17:38)
[2020-03-09] MEDS: PANTOPRAZOLE 40 MG TAB PO SCH ×2 (08:30→21:35)
[2020-03-09] MEDS: CARVEDILOL 12.5 MG TAB PO SCH ×2 (08:30→17:39)
[2020-03-09] MEDS: FAMOTIDINE 20 MG TAB PO SCH (08:30)
[2020-03-09] MEDS: B-COMPLEX W/ C & FOLIC ACID(NEPHROVITE TAB) PO SCH (08:30)
[2020-03-09] MEDS: ASPirin 81 mg TAB PO SCH (08:30)
[2020-03-09] MEDS: CLOPIDOGREL BISULFATE 75 MG TAB PO SCH (08:31)
[2020-03-09] MEDS: ISOSORBIDE MONONITRATE ER 60 MG TAB PO SCH (08:31)
[2020-03-09] MEDS: diphenhdrAMINE HCL 25 MG CAP PO SCH (08:31)
[2020-03-09] MEDS: ENOXAPARIN SOD 30 MG/0.3 ML SYRINGE SC SCH (08:32)
[2020-03-09] MEDS: FUROSEMIDE 40 MG/4 ML VIAL IV SCH (08:32)
[2020-03-09 09:16] VITALS: BP 142/76
[2020-03-09] MEDS: CINACALCET HYDROCHLORIDE 30 MG TAB PO SCH (10:27)
[2020-03-09] MEDS: INSULIN LANTUS (GLARGINE) 1 /0.01ml (100units/ml) SC SCH ×2 (10:31→21:52)
[2020-03-09 12:43] VITALS: BP 160/85
--- NOTE | 2020-03-09 14:24 | NUR ---
DIALYSIS NURSE AT BEDSIDE. HYDRALAZINE HELD
[2020-03-09] MEDS ORDERED: SODIUM CHL 0.9% 1000 ML BAG XX ONE (15:15)
[2020-03-09 16:36] VITALS: BP 176/96
[2020-03-09] MEDS: ACETAMINOPHEN 500 MG TAB PO PRN (19:03)
--- NOTE | 2020-03-09 19:35 | NUR ---
Opening shift note Assumed care of patient who is A&Ox4, respirations even and non-labored with no s/s of distress.Discussed POC with patient who verbalized understanding. Bed in lowest locked position with 2 side rails up, call light within reach. Will continue to monitor Q1hr and PRN.
[2020-03-09] MEDS ORDERED: EPOETIN ALFA 10,000 UNIT/1 ML VIAL SC ONE (21:00)
[2020-03-09] MEDS: QUEtiapine FUMARATE 100 MG TAB PO SCH (21:35)
[2020-03-09] MEDS ORDERED: PRAVASTATIN SODIUM 20 MG TAB PO SCH (22:00)
[2020-03-09] MEDS ORDERED: hydrALAZINE HCL 20 MG/ML VL IV PRN (22:15)
--- NOTE | 2020-03-10 00:47 | NUR ---
Patient c/o chest pain Patient having non-radiating sub-sternal chest pain 04/29. 12 lead EKG obtained and read by Dr. Murray. Troponins ordered per Dr. Murray.
--- NOTE | 2020-03-10 01:15 | NUR ---
Pain Patient c/o CP 04/29. Administered Nitrostat 0.4 mg per EMAR. After several minutes patient stated that he felt better. Patient attempted to lie down and felt severe back pain with reclining backwards. Administered morphine 2 mg per EMAR. Will continue to monitor.
[2020-03-10] MEDS: ACCU-CHEK COMFORT CURVE STRIP VI SCH ×4 (01:36→18:28)
[2020-03-10] MEDS: InsuLIN REG 1unit/0.01ml Soln (100units/ml) SC SCH ×4 (01:37→18:00)
--- NOTE | 2020-03-10 02:00 | NUR ---
Pain reassessed Patient resting with eyes closed, respirations even and non-labored with no s/s of distress. Will continue to monitor.
[2020-03-10 05:23] VITALS: BP 154/86
[2020-03-10] MEDS: hydrALAZINE HCL 25 MG TAB PO SCH ×2 (06:38→14:46)
[2020-03-10] MEDS: SUCRALFATE 1 GM TAB PO SCH ×3 (06:38→17:27)
[2020-03-10 06:56] LABS: Basophils # (auto) 0.1 10 ^3/uL (0-0.2); Basophils % (auto) 0.9 % (0.0-2.0); Eosinophils # (auto) 0.2 10 ^3/uL (0-0.8); Eosinophils % (auto) 2.6 % (0.0-7.0); Hematocrit 26.1 % (41.0-53.0); Hemoglobin 8.8 g/dL (13.5-17.5); Lymphocytes % (auto) 31.5 % (10.0-50.0); Mean Corpuscular Hgb Conc. 33.7 g/dL (32.0-36.0); Mean Corpuscular Volume 94.8 fL (80.0-100.0); Monocytes # (auto) 0.7 10 ^3/uL (0-1.3); Monocytes % (auto) 11.4 % (0.0-12.0); Neutrophils # (auto) 3.4 10 ^3/uL (1.6-8.6); Neutrophils % (auto) 53.6 % (37.0-80.0); Platelet Count (auto) 266 10^3/uL (140-450); Red Blood Cells 2.76 10^6/uL (4.5-5.90); Red Cell Distribution Width 19.4 % (11.8-14.3); White Blood Cell 6.4 10^3/uL (4.4-10.8)
[2020-03-10 07:08] LABS: INR 1.06 (0.9-1.15); Partial Thromboplastin Time 31.3 sec (23.64-32.05)
[2020-03-10 07:11] LABS: BUN/Creatinine Ratio 5.6; Calcium 7.8 mg/dL (8.5-10.1); Magnesium 2.6 mg/dL (1.6-2.6); Potassium 4.5 mmol/L (3.5-5.1)
[2020-03-10 07:15] LABS: Bilirubin, Total 0.2 mg/dL (0.2-1.0); Phosphorus 4.1 mg/dL (2.5-4.90); Total Protein 10.3 g/dL (6.4-8.2)
--- NOTE | 2020-03-10 07:15 | NUR ---
Closing shift note Patient resting with eyes closed, respirations even and non-labored with no s/s of distress. Endorsed care to day shift RNDang.
[2020-03-10] MEDS: SEVELAMER 800 MG TAB PO SCH ×3 (08:31→17:28)
[2020-03-10] MEDS: CARVEDILOL 12.5 MG TAB PO SCH ×2 (08:32→17:28)
[2020-03-10 09:00] VITALS: BP 147/79
[2020-03-10] MEDS ORDERED: FUROSEMIDE 40 MG/4 ML VIAL IV SCH (10:00)
[2020-03-10] MEDS: diphenhdrAMINE HCL 25 MG CAP PO SCH (10:30)
[2020-03-10] MEDS: FAMOTIDINE 20 MG TAB PO SCH (10:30)
[2020-03-10] MEDS: CINACALCET HYDROCHLORIDE 30 MG TAB PO SCH (10:30)
[2020-03-10] MEDS: ENOXAPARIN SOD 30 MG/0.3 ML SYRINGE SC SCH (10:30)
[2020-03-10] MEDS: B-COMPLEX W/ C & FOLIC ACID(NEPHROVITE TAB) PO SCH (10:30)
[2020-03-10] MEDS: CLOPIDOGREL BISULFATE 75 MG TAB PO SCH (10:30)
[2020-03-10] MEDS: ASPirin 81 mg TAB PO SCH (10:30)
[2020-03-10] MEDS: INSULIN LANTUS (GLARGINE) 1 /0.01ml (100units/ml) SC SCH (10:30)
[2020-03-10] MEDS: PANTOPRAZOLE 40 MG TAB PO SCH (10:30)
[2020-03-10] MEDS: ISOSORBIDE MONONITRATE ER 60 MG TAB PO SCH (10:34)
--- NOTE | 2020-03-10 12:22 | NUR ---
Nutrition Assessment Notes Please refer to link for full assessment notes. Est Energy needs: 3120-8234 kcals (30-35 kcal/kgBW) d/t pt with ESRD on HD Est Protein needs: 75-82 gms/day (1.1-1.2 gm/kgBW) d/t pt with ESRD on HD Will continue to monitor and reassess prn. Addendum: 03/10/20 at [address] Amended: Links added.
[2020-03-10] MEDS: ACETAMINOPHEN 500 MG TAB PO PRN (12:57)
[2020-03-10 13:00] VITALS: BP 144/80
--- NOTE | 2020-03-10 13:55 | NUR ---
DOCTOR LIZ AT BEDSIDE INFORMING PATIENT OF POC. MD INFORMED PATIENT HE IS GOING TO BE D/C TODAY. PATIENT VERBALIZED UNDERSTANDING AND AGREES WITH POC AND D/C.
[2020-03-10] MEDS ORDERED: PANT40T PO (15:42)
[2020-03-10] MEDS ORDERED: QUET100T46 PO (15:42)
[2020-03-10] MEDS ORDERED: FURO1TAB31 PO (15:42)
[2020-03-10] MEDS ORDERED: CINA30TA2 PO (15:42)
[2020-03-10] MEDS ORDERED: PRAV20TA3 PO (15:42)
[2020-03-10] MEDS ORDERED: SUCR1TAB PO (15:42)
[2020-03-10] MEDS ORDERED: CAR125T PO (15:42)
[2020-03-10] MEDS ORDERED: ISO60SRT PO (15:42)
[2020-03-10] MEDS ORDERED: SEVE800T PO (15:42)
[2020-03-10] MEDS ORDERED: HYDR-2691 PO (15:42)
[2020-03-10] MEDS ORDERED: ASPI81CH43 PO (15:42)
[2020-03-10] MEDS ORDERED: FAM20T PO (15:42)
[2020-03-10] MEDS ORDERED: CLOP75TA28 PO (15:42)
[2020-03-10] MEDS ORDERED: NEPVITT PO (15:42)
[2020-03-10] MEDS ORDERED: INSLANTI SC (15:42)
[2020-03-10] MEDS ORDERED: DIP25C PO (15:42)
[2020-03-10 17:00] VITALS: BP 135/81
--- NOTE | 2020-03-10 19:00 | NUR ---
Care endorsed to NOC PAT Maurer.
--- NOTE | 2020-03-10 19:00 | NUR ---
Discharge instructions given as ordered. Encourage to follow up with PMD as instructed. All questions and concerns addressed. Patient verbalized understanding. Medication reconciliation form completed and copy given to patient. No home medications held in Pharmacy and none returned to patient, and no needed vaccines given. IV removed with catheter intact, pressure dressing applied. Telemetry unit returned to ICU. Patient sitting in bed waiting for taxi transportation home.
== END 2020-03-10 19:20 | disposition home or self-care (01) | DRG 194 ==
LOC: EDBD 00:20 → ER 00:28 → TELE 00:29 → TELE-WESTW 10:32
PROVIDERS: ADMIT Internal Medicine; ATTEND Internal Medicine
PROC: 5A1D70Z Performance of Urinary Filtration, Intermittent, Less than 6 Hours Per Day (ICD-10-PCS; principal; 2020-03-07)
PROC: 5A1D70Z Performance of Urinary Filtration, Intermittent, Less than 6 Hours Per Day (ICD-10-PCS; 2020-03-09)
DX: I13.2 Hypertensive heart and chronic kidney disease with heart failure and with stage 5 chronic kidney disease, or end stage renal disease (principal); I21.A1 Myocardial infarction type 2; J96.01 Acute respiratory failure with hypoxia; E43 Unspecified severe protein-calorie malnutrition; I50.23 Acute on chronic systolic (congestive) heart failure; E87.5 Hyperkalemia; N18.6 End stage renal disease; E11.65 Type 2 diabetes mellitus with hyperglycemia; D63.1 Anemia in chronic kidney disease; N39.0 Urinary tract infection, site not specified; E87.1 Hypo-osmolality and hyponatremia; J44.9 Chronic obstructive pulmonary disease, unspecified; K21.9 Gastro-esophageal reflux disease without esophagitis; E11.22 Type 2 diabetes mellitus with diabetic chronic kidney disease; F32.9 Major depressive disorder, single episode, unspecified; F20.0 Paranoid schizophrenia; I25.10 Atherosclerotic heart disease of native coronary artery without angina pectoris; Z91.19 Patient's noncompliance with other medical treatment and regimen; Z99.2 Dependence on renal dialysis; Z95.5 Presence of coronary angioplasty implant and graft; Z95.810 Presence of automatic (implantable) cardiac defibrillator; Z88.8 Allergy status to other drugs, medicaments and biological substances; Z68.20 Body mass index [BMI] 20.0-20.9, adult
CPT/HCPCS: 36415; 71045; 80053; 80061; 80307; 80320; 81001; 82010; 82550; 82962; 83735; 83880; 84100; 84443; 84484; 85025; 85610; 85652; 85730; 86141; 87081; 87086; 90935; 93005; 96374; 96375; 99291; G0378; J0696; J0885; J1642; J1815; J2405

== ENCOUNTER 2020-03-15 01:32 | Emergency (ER) | payer MEDICAID ==
[~2020-03-15] VITALS: Ht 182.9 cm; Wt 74.8 kg
[~2020-03-15 01:32] MED LIST changes: +ASPI81CH43 PO; -B-CO-6 PO; +CAR125T PO; -CARV6.2551 PO; +DIP25C PO; -DIPH25CA66 PO; +FAM20T PO; +FURO1TAB31 PO; -FURO1TAB33 PO; +HYDR-2691 PO; +INSLANTI SC; -INSU100I49 SC; -INSU1INJ19 SC; +ISO60SRT PO; -METH-532 PO; +NEPVITT PO; +PANT40T PO; -PANT40TA2 PO; +PRAV20TA3 PO; +QUET100T46 PO; -QUET300T23 PO; +SEVE800T PO; -SEVE800T20 PO; -SIMV10TA84 PO; +SUCR1TAB PO; -SUCR1TAB38 PO
[2020-03-15 05:06] LABS: Basophils # (auto) 0 10 ^3/uL (0-0.2); Basophils % (auto) 0.7 % (0.0-2.0); Eosinophils # (auto) 0.1 10 ^3/uL (0-0.8); Eosinophils % (auto) 1.2 % (0.0-7.0); Hematocrit 26.3 % (41.0-53.0); Hemoglobin 8.8 g/dL (13.5-17.5); Lymphocytes # (auto) 1.5 10 ^3/uL (0.4-5.4); Mean Corpuscular Hemoglobin 31.8 pg (28.0-32.0); Mean Corpuscular Hgb Conc. 33.4 g/dL (32.0-36.0); Mean Corpuscular Volume 95.2 fL (80.0-100.0); Monocytes % (auto) 14.9 % (0.0-12.0); Neutrophils # (auto) 4.2 10 ^3/uL (1.6-8.6); Neutrophils % (auto) 61.2 % (37.0-80.0); Nucleated Red Blood Cells % 0.2 %; Platelet Count (auto) 202 10^3/uL (140-450); Red Blood Cells 2.76 10^6/uL (4.5-5.90); Red Cell Distribution Width 18.6 % (11.8-14.3); White Blood Cell 6.8 10^3/uL (4.4-10.8)
[2020-03-15 05:25] LABS: Albumin 2.2 g/dL (3.4-5.0); Calcium 7.8 mg/dL (8.5-10.1); Potassium 4.6 mmol/L (3.5-5.1)
[2020-03-15 05:27] LABS: INR 1.18 (0.9-1.15); Partial Thromboplastin Time 28.9 sec (23.64-32.05)
[2020-03-15 05:31] LABS: BUN/Creatinine Ratio 6.9
[2020-03-15 05:32] LABS: Bilirubin, Total 0.4 mg/dL (0.2-1.0); Total Protein 10.8 g/dL (6.4-8.2)
[2020-03-15] MEDS ORDERED: InsuLIN REG 1unit/0.01ml Soln (100units/ml) IV ONE (06:00)
[2020-03-15 06:19] VITALS: BP 171/88
[2020-03-15] MEDS ORDERED: cefTRIAXone 1GM/50ML D5W 50 ML IV ONE (06:30)
[2020-03-15] MEDS ORDERED: VANCOMYCIN 1GM/250ML 250 ML IV ONE (07:15)
== END 2020-03-15 07:16 | disposition home or self-care (01) ==
LOC: EDBD 01:32 → ER 01:36
DX: J44.0 Chronic obstructive pulmonary disease with (acute) lower respiratory infection (principal); J18.9 Pneumonia, unspecified organism; Z91.14 Patient's other noncompliance with medication regimen; E11.65 Type 2 diabetes mellitus with hyperglycemia; E11.22 Type 2 diabetes mellitus with diabetic chronic kidney disease; I13.2 Hypertensive heart and chronic kidney disease with heart failure and with stage 5 chronic kidney disease, or end stage renal disease; N18.6 End stage renal disease; I50.9 Heart failure, unspecified; Z99.2 Dependence on renal dialysis; I25.10 Atherosclerotic heart disease of native coronary artery without angina pectoris; K21.9 Gastro-esophageal reflux disease without esophagitis; Z20.828 Contact with and (suspected) exposure to other viral communicable diseases
CPT/HCPCS: 36415; 71045; 71250; 74176; 80053; 83880; 84484; 85025; 85610; 85730; 93005; 96374; 99291; J1815